=== PATIENT | female | born 1945 | race Caucasian/White ===

== ENCOUNTER 2017-01-16 05:14 | Inpatient (IN) ==
--- NOTE | 2017-01-16 06:21 | Emergency Department Note ---
Kade Pratt Hilary, am scribing for, and in the presence of, Jeffrey Joyce MD 06: 12. Maria Del Carmen Pratt James D, MD, personally performed the services described in this documentation, ascribed by Jena Braun in my presence, and it is both accurate and complete 621 . Arrival - Arrival Chief Complaint: Extremity Problem Stated Complaint: left leg pain, weakness ED Nursing Triage Note: Patient to room via ems with c/o left leg pain that started one week ago. Patient states this afternoon it got worse. She couldn't even get up and go to the bedside chair. Mode of Arrival: Stretcher Limitations: No Limitations Source: Patient, RN Notes Reviewed - History of Present Illness HPI Narrative: Pt is a 71 y/o white female brought into ED via EMS with c/o left leg pain which onset a week ago. Pt states that the pain is in her upper leg and she denies injury to it. She says that she normally walks with a walker or her power chair. No other complaints or problems stated in the ED. Onset (ago): week(s) Consistency: constant Severity: mild Severity scale (1-10): 1 Allergies/Adverse Reactions: Allergies Allergy/AdvReac Type Severity Reaction Status Date / Time Sulfa (Sulfonamide Allergy Unknown/Unable Verified 01/16/17 05:27 Antibiotics) to obtain Home Medications: Home Medications Medication Instructions Recorded Confirmed Type Cholecalciferol (Vitamin D3) 2,000 unit PO DAILY 10/17/15 05/24/16 History [Vitamin D3] Magnesium Oxide [Magnesium] 400 mg PO DAILY 10/17/15 05/24/16 History Bisoprolol Fumarate 5 mg PO DAILY 04/07/16 05/24/16 History Cetirizine Tab [ZyrTEC Tab] 10 mg PO DAILY 05/18/16 05/24/16 History Cyanocobalamin (Vitamin B-12) 1,000 mcg PO DAILY 05/18/16 05/24/16 History [Vitamin B-12] Fluticasone 50 Mcg Nasal [place] 1 spray BOTH NARES DAILY 05/18/16 05/24/16 History [Flonase Nasal [place]] Meclizine [Antivert] 25 mg PO DAILY PRN 05/18/16 05/24/16 History Phenytoin ER Cap [Dilantin Cap] 200 mg PO TID 05/18/16 05/24/16 History Tramadol HCl [Tramadol Tab] 50 mg PO QID PRN 05/18/16 05/24/16 History Acetaminophen Tab [Tylenol Tab] 650 mg PO Q6H PRN #0 tablet 05/24/16 05/24/16 Rx Benzonatate [Tessalon] 100 mg PO TID PRN #0 capsule 05/24/16 05/24/16 Rx Docusate Sodium Cap [Colace Cap] 100 mg PO BID capsule 05/24/16 05/24/16 Rx Ferrous Sulfate Tab [Feosol 325 mg PO DAILY tablet 05/24/16 05/24/16 Rx Original Tab] Fluticasone 50 Mcg Nasal [place] 2 spray BOTH NARES BEDTIME nasal 05/24/16 Rx [Flonase Nasal [place]] spray Ibuprofen Tab [Motrin Tab] 600 mg PO Q6H PRN #0 tablet 05/24/16 05/24/16 Rx Levothyroxine Tab [Synthroid Tab] 50 mcg PO DAILY@0700 #30 tablet 05/24/1605/24 Rx Montelukast Tab [Singulair Tab] 10 mg PO DAILY tablet 05/24/16 05/24/16 Rx Phenol 1.4% Throat Bristol 5 spray PO Q2H PRN #0 bottle 05/24/16 05/24/16 Rx [Chloraseptic Bristol] Potassium Chloride Cap/Tab [K Dur] 10 meq PO DAILY #30 tablet 05/24/16 05/24/16 Rx Skin Healing Oint (Aquaphor) 1 applic TOP PRN PRN #0 ointment 05/24/16 05/24/16 Rx [Aquaphor] guaiFENesin/CODEINE [Robitussin AC] 5 ml PO BID PRN #0 liquid 05/24/16 05/24/16 Rx Review of System - Review of System 12 point system: reviewed and no additional remarkable complaints except as stated - Review of System Constitutional: Absent: fever Musculoskeletal: Present: leg pain (left leg) Medical,Surgical,& Family Hx - Medical History Cardio: History of: Hypertension Psychological: History of: Depression Neurology: History of: Peripheral Neuropathy, Seizures HEENT: History of: Ear Problem (ear infections) Endocrine: History of: Diabetes Mellitus (IDDM), Diabetes Mellitus (NIDDM) Respiratory: History of: Obstructive Sleep Apnea, Pneumonia Musculoskeletal: History of: Back/Neck Problems (osteoarthritis), Musculoskeletal Problems Hematology: History of: Anemia (chronic disease) Other: History of: Cancer (skin cancer left hand) - Surgical History Cardiac Surgeries: Patient Denies: Femoral-Popliteal Bypass Graft, Cardiac Catheterization, Carotid Endarterectomy, Internal Defibrillator, Vascular Access Devices Thoracic Surgeries: Patient denies;: Kidney (Renal Surgery), Lithotripsy, Nephrectomy, Organ Transplant, Lobectomy Neurologic Surgeries: Patient denies: Neurologic Surgery HEENT Surgeries: Surgical HX of: Thyroid Surgery, Tonsilectomy & Adenoidectomy Patient denies: Carotid Endarterectomy Abdominal Surgeries: Surgical HX of: Colonoscopy, EGD Patient denies: Splenectomy Reproductive Surgeries: Surgical HX of;: Hysterectomy Patient denies;: Cystoscopy, Genitourinary Surgery Orthopedic Surgeries: Comment Only: Total Knee Replacement (left knee scope) - Family History Family History: Reports;: Family Cancer (sisters parents), Family Diabetes ( diabetes) - Social History Smoking Status: Never smoker Frequency of Alcohol Use: None Type of Drug Use: None Marital Status: Single Lives With:: Alone Functional capacity: uses cane/walker (power chair) Exam Physical Examination: GENERAL: This is a Morbidly Obese white female, well-developed in no apparent distress. VITAL SIGNS: Temperature: 98.3 Pulse: 75 Respiratory: 22 Blood Pressure: 189/ 71 O2Sat: 95 HEENT: Head is normocephalic and atraumatic. Pupils are equally round and reactive to light. Extraocular movement are intact. Oropharynx is benign with moist mucous membranes. NECK: Neck is soft and supple without tenderness. There are no masses. There is no lymphadenopathy. LUNGS: Lungs are clear to auscultation bilaterally. Chest rises symmetrically. There is no chest wall tenderness. CV: Heart is regular rate and rhythm without murmurs, rubs, or gallops. ABDOMEN: Abdomen is soft, non-tender to palpation. There are no abnormal masses palpated. There is no organomegaly. Bowel sounds are present and active. SKIN: Skin is warm and dry. No rash. Redness from the knees down, errythema, induration, cellulitis EXTREMITIES: I was incapable of moving patient's left lower extremity through passive range of motion due to the size of her legs. There is pedal edema. NEUROLOGIC: Awake, alert, and oriented x4. Cranial nerves II through XII are grossly intact. There are no motorsensory deficits. PSYCHIATRIC: Normal affect. Normal mood. Vital Signs: Vital Signs Temperature 98.3 F 01/16/17 05:20 Pulse Rate 75 01/16/17 05:20 Respiratory Rate 22 01/16/17 05:20 Blood Pressure 189/71 01/16/17 05:20 O2 Sat by Pulse Oximetry 95 01/16/17 05:20 Course - Consultations Consultation #1: Discussed with Dr. Santiago. Patient will be admitted to Dr. Gabriela Renner service. Initial orders written for her. Time: 08:04 Results - Labs CBC & BMP: 01/16/17 06:47 01/16/17 06:47 Lab Results: I have reviewed the patients labs Labs: Laboratory Tests 01/16/17 06:47 WBC 5.7 RBC 4.09 Hgb 13.2 Hct 38.5 Plt Count 157 Baso % (Auto) 0.9 H Lymph # (Auto) 1.2 L Laboratory Tests 01/16/17 06:47 Sodium 143 Potassium 4.3 Chloride 106 Carbon Dioxide 28 BUN 18 BUN/Creatinine Ratio 25.00 H Glucose 110 H Alkaline Phosphatase 136 H Total Protein 6.8 - Diagnostic Findings Procedure: X-ray: image reviewed by me (Left hip and pelvis: No evidence of fracture.) Disposition Clinical Impression: Degenerative joint disease of left hip, Diabetes mellitus, Chronic cellulitis of lower extremities Case discussed with: patient, patient's family Disposition: Still a Patient
--- NOTE | 2017-01-16 06:53 | XRay Report ---
Exam: XR hip 2v w pelvis LT Date: 01/16/2017 6:08 AM Indication: Left hip pain Comparison: None Technical AP pelvis with AP frog-leg views and frog-leg view of the left hip and AP view left hip 4 total images Findings: The pubic rami are intact. The femoral head and neck regions are demonstrated without fracture. Moderate fecal debris in the colon. The iliac wings SI joints are intact. Degenerative change present in the lumbosacral spine. Disc space narrowing at L4-5 and L5-S1. Impression: 1. No fracture dislocation with minimal degenerative arthritic changes of the hips 2. Mild to moderate fecal debris 3. Degenerative changes lumbosacral spine PROCEDURE INTERPRETED AT [facility] DEPARTMENT OF RADIOLOGY Final Report Signed by: Dr. Mathieu Foreman
[2017-01-16 07:23] LABS: Basophils # 0.1 10*3/uL (0.0-0.2); Basophils % 0.9 % (0.0-0.8); Eosinophils # 0.3 10*3/uL (0.0-0.87); Eosinophils % 4.9 % (0.00-10.9); Hematocrit 38.5 VOL% (35.7-47.0); Hemoglobin 13.2 GM/DL (12.0-16.0); Immature Granulocytes % 0.5 %; Immature Granulocytes Absolute 0.03 #; Lymphocytes # 1.2 10*3/uL (1.4-4.0); Lymphocytes % 21.4 % (21.3-54.2); Mean Corpuscular HGB Conc 34.3 GM/DL (32-36); Mean Corpuscular Hemoglobin 32 PG (27-34); Mean Corpuscular Volume 94.1 FL (87-102); Monocytes # 0.5 10*3/uL (0.11-0.8); Monocytes % 8.4 % (1.7-12.7); Neutrophils # 3.7 10*3/uL (1.4-7.4); Neutrophils % 63.9 % (38.7-73.9); Platelet Count 157 T/CUMM (130-400); Red Blood Count 4.09 MC/CUMM (3.8-5.5); White Blood Count 5.7 T/CUMM (4-12)
[2017-01-16 07:41] LABS: Albumin 3.8 G/DL (3.4-5.0); Bilirubin,Total 0.4 MG/DL (0.2-1.0); Calcium 8.6 MG/DL (8.5-10.1); Potassium 4.3 MMOL/L (3.5-5.1); Total Protein 6.8 G/DL (6.4-8.3)
[2017-01-16] MEDS ORDERED: KETOROLAC 30 MG/1 ML VIAL ONE (08:07)
[2017-01-16] MEDS ORDERED: KETOROLAC 30 MG/1 ML VIAL IV STA (08:33)
[2017-01-16] MEDS ORDERED: KETOROLAC 30 MG/1 ML VIAL IV PRN (08:45)
[2017-01-16] MEDS ORDERED: ONDANSETRON 4 MG/2 ML VIAL IV PRN (08:45)
[2017-01-16] MEDS ORDERED: ACETAMINOPHEN 325 MG TABLET PO PRN (08:45)
[2017-01-16] MEDS: SODIUM CHLORIDE 0.9% 1,000 ML IV SCH ×2 (11:34→22:36)
[2017-01-16] MEDS: CLINDAMYCIN INJ 600 MG in PREMIX 1 EACH IV SCH ×2 (11:34→18:57)
[2017-01-16] MEDS: PANTOPRAZOLE 40 MG TABLET PO SCH (11:35)
[2017-01-16] MEDS: DOCUSATE SODIUM 100 MG CAPSULE PO SCH ×2 (11:35→22:37)
[2017-01-16] MEDS: ENOXAPARIN 40 MG/0.4 ML SYRINGE SUBCUT SCH (11:35)
[2017-01-16] MEDS ORDERED: SKIN HEALING OINT (AQUAPHOR) 50 GM TUBE TOP PRN (15:09)
--- NOTE | 2017-01-16 18:50 | Family Practice History&Phys ---
Assessment and Plan (1) Morbid obesity Status: Chronic Current Visit: Yes (2) Lower extremity cellulitis Problem details: bilateral Status: Resolved Assessment and plan: 04/18/2017: Cultures obtained and patient was started on IV Cleocin in the emergency room. Current Visit: No (3) Degenerative joint disease of left hip Status: Acute Assessment and plan: 01/16/2017: Physical therapy will be consulted. Patient has very limited number of therapeutic options at this time. Current Visit: Yes History of Present Illness Chief complaint: Left groin pain History of present illness: Ms. Alva is a 71 year old female Patient is a 71-year-old white female who lives at [facility] who presents emergency room complaining of increasing pain in the left groin and hip area. The pain is intensified to the point that she was unable to transfer herself from her wheelchair to the commode. She is morbidly obese and they were unable to provide her the necessary assistance to accomplish that goal. Patient denies any falls or injuries and states she has not done anything to hurt her left hip that she knows of. The only time she stands is to transfer to the commode. She is not ambulatory. Patient states she has not had any fever or chills and she denies any nausea, vomiting or diarrhea. Home Medications Medication Instructions Recorded Confirmed Type Magnesium Oxide [Magnesium] 400 mg PO DAILY 10/17/15 01/16/17 History Cetirizine Tab [ZyrTEC Tab] 10 mg PO DAILY 05/18/16 01/16/17 History Meclizine [Antivert] 25 mg PO DAILY 05/18/16 01/16/17 History Tramadol HCl [Tramadol Tab] 50 mg PO QID PRN 05/18/16 01/16/17 History Doxycycline Monohydrate 100 mg PO BID 01/16/17 01/16/17 History Furosemide Tab [Lasix Tab] 160 mg PO DAILY 01/16/17 01/16/17 History Levothyroxine Tab [Synthroid Tab] 50 mcg PO DAILY 01/16/17 01/16/17 History Phenytoin Sodium Extended 200 mg PO TID 01/16/17 01/16/17 History Sitagliptin Phosphate [Januvia] 50 mg PO DAILY 01/16/17 01/16/17 History Tamsulosin [Flomax] 0.4 mg PO DAILY 01/16/17 01/16/17 History Allergies Allergy/AdvReac Type Severity Reaction Status Date / Time Sulfa (Sulfonamide Allergy Unknown/Unable Verified 01/16/17 11:08 Antibiotics) to obtain - Constitutional Constitutional: Absent: chills, fever(s), malaise, weakness - EENT Eyes: Absent: blurry vision, loss of vision Ears: Absent: decreased hearing, ear pain Nose, mouth and throat: Absent: hoarseness, sinus pressure, sore throat - Cardiovascular Cardiovascular: Absent: chest pain at rest, dyspnea, orthopnea, palpitations, PND - Respiratory Respiratory: Absent: cough, dyspnea, wheezing - Gastrointestinal Gastrointestinal: Absent: abdominal pain, diarrhea, dyspepsia, dysphagia, melena , nausea, vomiting - Genitourinary Genitourinary: Absent: difficulty urinating, dysuria, urinary frequency - Musculoskeletal Musculoskeletal: Present: as per HPI, arthralgias (Left hip). Absent: back pain , muscle cramps - Neurological Neurological: Absent: abnormal gait, confusion, focal weakness, frequent falls, numbness, paresthesias - Psychiatric Psychiatric: Absent: anxiety, depression - Endocrine Endocrine: Absent: fatigue, polydipsia, polyphagia - Hematologic/Lymphatic Hematologic/Lymphatic: Absent: easy bleeding, easy bruising Medical,Surgical,& Family Hx - Medical History Cardio: History of: Hypertension Psychological: History of: Depression Neurology: History of: Peripheral Neuropathy, Seizures HEENT: History of: Ear Problem (ear infections) Endocrine: History of: Diabetes Mellitus (IDDM), Diabetes Mellitus (NIDDM) Respiratory: History of: Obstructive Sleep Apnea, Pneumonia Musculoskeletal: History of: Back/Neck Problems (osteoarthritis), Musculoskeletal Problems Hematology: History of: Anemia (chronic disease) Other: History of: Cancer (skin cancer left hand), Miscellaneous Medical Problems (Morbid obesity) - Surgical History Cardiac Surgeries: Patient Denies: Femoral-Popliteal Bypass Graft, Cardiac Catheterization, Carotid Endarterectomy, Internal Defibrillator, Vascular Access Devices Thoracic Surgeries: Patient denies;: Kidney (Renal Surgery), Lithotripsy, Nephrectomy, Organ Transplant, Lobectomy Neurologic Surgeries: Patient denies: Neurologic Surgery HEENT Surgeries: Surgical HX of: Thyroid Surgery, Tonsilectomy & Adenoidectomy Patient denies: Carotid Endarterectomy Abdominal Surgeries: Surgical HX of: Colonoscopy, EGD Patient denies: Splenectomy Reproductive Surgeries: Surgical HX of;: Hysterectomy Patient denies;: Cystoscopy, Genitourinary Surgery Orthopedic Surgeries: Comment Only: Total Knee Replacement (left knee scope) - Family History Family History: Reports;: Family Cancer (sisters parents), Family Diabetes ( diabetes) - Social History Smoking Status: Never smoker Frequency of Alcohol Use: None Type of Drug Use: None Exam - Constitutional Vitals: Period Temp Pulse Resp BP Sys/Kemp Pulse Ox Last 24 Hr 97.2 F-98.3 F 70-75 16-22 127-189/62-73 93-97 Exam: General: Objective patient is a well-developed morbidly obese white female in no acute distress. Patient is able to give a good history and follows commands accurately. She is virtually akinetic due to her obesity. Her sister has been 1 of my patients for over 10 years. HEENT: Pupils equal and reactive to light. Patent nares and airway Neck: No meningismus, adenopathy, thyromegaly. There are no auscultated carotid bruits. Cardiovascular: Regular rhythm. No murmurs or gallops Chest: Clear to auscultation without rales rhonchi wheezes. Abdomen: Soft nontender to palpation No masses, rebound, guarding or tenderness. Neuro: Cranial nerves intact and patient has diffuse muscle weakness. Dermatologic: Patient's noted to have changes of cellulitis to both calves. Some of this is probably chronic venous stasis dermatitis. Musculoskeletal: There is pain with left hip rotation. Extremities: She has tenderness to both calves. Results - Labs CBC & BMP: 01/16/17 06:47 01/16/17 06:47 Lab Results: I have reviewed the past 24 hour labs
[2017-01-16] MEDS: DOXYCYCLINE HYCLATE 100 MG CAPSULE PO SCH (22:37)
[2017-01-16] MEDS: PHENYTOIN ER 100 MG CAPSULE PO SCH (22:37)
[2017-01-17] MEDS: CLINDAMYCIN INJ 600 MG in PREMIX 1 EACH IV SCH ×3 (02:38→18:27)
[2017-01-17] MEDS: SODIUM CHLORIDE 0.9% 1,000 ML IV SCH ×4 (02:39→23:57)
[2017-01-17] MEDS: LEVOTHYROXINE 50 MCG TABLET PO SCH (07:08)
[2017-01-17] MEDS: sitaGLIPtin 25 MG TABLET PO SCH (10:06)
[2017-01-17] MEDS: DOCUSATE SODIUM 100 MG CAPSULE PO SCH ×2 (10:07→22:22)
[2017-01-17] MEDS: MAGNESIUM OXIDE 400 MG TABLET PO SCH (10:07)
[2017-01-17] MEDS: MECLIZINE 25 MG TABLET PO SCH (10:07)
[2017-01-17] MEDS: FUROSEMIDE 80 MG TABLET PO SCH (10:07)
[2017-01-17] MEDS: TAMSULOSIN 0.4 MG CAPSULE PO SCH (10:07)
[2017-01-17] MEDS: PHENYTOIN ER 100 MG CAPSULE PO SCH ×3 (10:07→22:18)
[2017-01-17] MEDS: ENOXAPARIN 40 MG/0.4 ML SYRINGE SUBCUT SCH (10:08)
[2017-01-17] MEDS: CETIRIZINE 10 MG TABLET PO SCH (10:08)
[2017-01-17] MEDS: PANTOPRAZOLE 40 MG TABLET PO SCH (10:08)
[2017-01-17] MEDS: DOXYCYCLINE HYCLATE 100 MG CAPSULE PO SCH (10:23)
[2017-01-17] MEDS ORDERED: TUBERCULIN SKIN TEST 0.1 ML SYRINGE INTRADERM ONE (12:30)
--- NOTE | 2017-01-17 12:54 | Case Mgmt Physician Query Form ---
TB Signs and Symptoms Screening ([place]) INSTRUCTIONS: To be completed annually on residents/staff with a significant Tuberculin Skin Test (TST) upon admission/hire or a prior significant TST. To be completed on all staff at hire. Please respond to each listed symptom with an (X) in either the "YES" or "NO" box. Do you currently have any of the following symptoms: YES NO ( ) (x ) A cough If yes, is it: ( ) Productive ( ) Non- productive ( ) ( x) Hemoptysis (spitting up blood) ( ) (x ) Chest pains ( ) ( x) Weight Loss ( ) (x ) Fever ( ) (x ) Night Sweats ( x) ( ) Weakness ( ) (x ) Loss of Appetite ( ) ( x) Difficulty Breathing If you answered YES" to any of the above questions, how long have symptoms been present? Comments: If you have any questions, please contact me . Thank you, Fatimah DANIELLE Email: [email or web address] [facility]
[2017-01-17] MEDS: MAGNESIUM HYDROXIDE SUSP 30 ML UDCUP PO SCH ×3 (15:20→22:22)
--- NOTE | 2017-01-17 16:10 | Internal Med Progress Note ---
Assessment and Plan (1) Degenerative joint disease of left hip Status: Chronic Current Visit: Yes Qualifiers: Osteoarthritis type: primary Qualified Code(s): M16.12 - Unilateral primary osteoarthritis, left hip (2) Diabetes mellitus Status: Chronic Current Visit: Yes Qualifiers: Diabetes mellitus type: type 2 Diabetes mellitus complication status: with skin complications Diabetes mellitus complication detail: with dermatitis Diabetes mellitus emt intermediate insulin use: with assisted use Qualified Code(s) : E11.620 - Type 2 diabetes mellitus with diabetic dermatitis; Z79.4 - ferry terminal agent (current) use of insulin (3) Morbid obesity Status: Chronic Current Visit: Yes Qualifiers: Obesity type: due to excess calories Qualified Code(s): E66.01 - Morbid ( severe) obesity due to excess calories (4) Cellulitis Status: Chronic Current Visit: Yes Qualifiers: Site of cellulitis: extremity Site of cellulitis of extremity: lower extremity Laterality: left Qualified Code(s): L03.116 - Cellulitis of left lower limb (5) Debility Status: Chronic Current Visit: Yes (6) Obstructive sleep apnea Status: Chronic Current Visit: No (7) Venous stasis dermatitis of both lower extremities Status: Chronic Current Visit: Yes (8) Chronic acquired lymphedema Status: Chronic Current Visit: Yes (9) HTN (hypertension) Status: Chronic Current Visit: Yes Qualifiers: Hypertension type: essential hypertension Qualified Code(s): I10 - Essential (primary) hypertension Internal Medicine - PN: Subj Interval history: This is a 71 year old female with history of HTN, DM, chronic peripheral lower extremity lymphedema, chronic peripheral lower extremity cellulitis, chronic lower extremity venous stasis, morbid obesity, osteoarthritis, immobility, who is here with chronic back pain/hip pain. She has been living in [facility], but can no longer care for herself. She is now agreeable with going to halfway. Dr. Dash consulted for wound care. She is on Clindamycin IV. Exam (Progress Note) - Constitutional Vitals: Period Temp Pulse Resp BP Sys/Kemp Pulse Ox Last 24 Hr 97.4 F-98.9 F 67-76 18-20 132-181/54-78 92-96 General appearance: no acute distress - Head Head exam: Present: normocephalic - Eye Eye exam: Present: EOMI - Respiratory Respiratory exam: Present: clear to auscultation bilaterally - Cardiovascular Cardiovascular exam: Present: regular rate and rhythm - GI/Abdominal GI/Abdominal exam: Present: normal bowel sounds, soft. Absent: tenderness - Extremities Exam Extremities exam: Present: other (leg tenderness). Absent: edema - Neurological Exam Neurological exam: Present: alert, oriented X3 - Psychiatric Psychiatric exam: Present: normal mood - Skin Skin exam: Present: warm, dry Results - Labs CBC & BMP: 01/18/17 05:24 01/18/17 05:24
[2017-01-17] MEDS ORDERED: CHLORHEXIDINE 4% SOLN 118 ML BOTTLE TOP ONE (16:27)
--- NOTE | 2017-01-17 16:34 | General Surgery Consult Note ---
Assessment and Plan - Time spent with patient Time spent with patient: Less than 30 minutes (1) Venous stasis dermatitis of both lower extremities Status: Acute Assessment and plan: Impression: Bilateral chronic venous stasis dermatitis with weeping but no ulcers Plan: Compressive therapy. Current Visit: No History of Present Illness Chief complaint: Bilateral leg swelling with blisters History of present illness: Ms. Alva is a 71 year old female obese with limited mobility and chronic venous stasis disease of the legs. She has them wrapped and complains of soreness and some drainage. No clear ulcer is seen but in is moist on the posterior aspect. Home Medications Medication Instructions Recorded Confirmed Type Magnesium Oxide [Magnesium] 400 mg PO DAILY 10/17/15 01/16/17 History Cetirizine Tab [ZyrTEC Tab] 10 mg PO DAILY 05/18/16 01/16/17 History Meclizine [Antivert] 25 mg PO DAILY 05/18/16 01/16/17 History Tramadol HCl [Tramadol Tab] 50 mg PO QID PRN 05/18/16 01/16/17 History Doxycycline Monohydrate 100 mg PO BID 01/16/17 01/16/17 History Furosemide Tab [Lasix Tab] 160 mg PO DAILY 01/16/17 01/16/17 History Levothyroxine Tab [Synthroid Tab] 50 mcg PO DAILY 01/16/17 01/16/17 History Phenytoin Sodium Extended 200 mg PO TID 01/16/17 01/16/17 History Sitagliptin Phosphate [Januvia] 50 mg PO DAILY 01/16/17 01/16/17 History Tamsulosin [Flomax] 0.4 mg PO DAILY 01/16/17 01/16/17 History Allergies Allergy/AdvReac Type Severity Reaction Status Date / Time Sulfa (Sulfonamide Allergy Unknown/Unable Verified 01/16/17 11:08 Antibiotics) to obtain Medical,Surgical,& Family Hx - Medical History Cardio: History of: Hypertension Psychological: History of: Depression Neurology: History of: Peripheral Neuropathy, Seizures HEENT: History of: Ear Problem (ear infections) Endocrine: History of: Diabetes Mellitus (IDDM), Diabetes Mellitus (NIDDM) Respiratory: History of: Obstructive Sleep Apnea, Pneumonia Musculoskeletal: History of: Back/Neck Problems (osteoarthritis), Musculoskeletal Problems Hematology: History of: Anemia (chronic disease) Other: History of: Cancer (skin cancer left hand), Miscellaneous Medical Problems (Morbid obesity) - Surgical History Cardiac Surgeries: Patient Denies: Femoral-Popliteal Bypass Graft, Cardiac Catheterization, Carotid Endarterectomy, Internal Defibrillator, Vascular Access Devices Thoracic Surgeries: Patient denies;: Kidney (Renal Surgery), Lithotripsy, Nephrectomy, Organ Transplant, Lobectomy Neurologic Surgeries: Patient denies: Neurologic Surgery HEENT Surgeries: Surgical HX of: Thyroid Surgery, Tonsilectomy & Adenoidectomy Patient denies: Carotid Endarterectomy Abdominal Surgeries: Surgical HX of: Colonoscopy, EGD Patient denies: Splenectomy Reproductive Surgeries: Surgical HX of;: Hysterectomy Patient denies;: Cystoscopy, Genitourinary Surgery Orthopedic Surgeries: Comment Only: Total Knee Replacement (left knee scope) - Family History Family History: Reports;: Family Cancer (sisters parents), Family Diabetes ( diabetes) - Social History Smoking Status: Never smoker Frequency of Alcohol Use: None Type of Drug Use: None 12 point system: reviewed and no additional remarkable complaints except as stated Exam - Constitutional Vitals: Period Temp Pulse Resp BP Sys/Kemp Pulse Ox Last 24 Hr 97.4 F-98.9 F 67-76 18-20 132-181/54-78 92-96 General appearance: mild distress - Head Head exam: Present: normal inspection - ENT ENT exam: Present: normal exam - Neck Neck exam: Present: normal inspection - Respiratory Respiratory exam: Present: rales, rhonchi - Cardiovascular Cardiovascular exam: Present: RRR - GI/Abdominal GI/Abdominal exam: Present: hypoactive bowel sounds, soft - Extremities Exam Extremities exam: Present: other (Bilateral edema moderated with moisture especially posteriorily and chronic venousstasis changes.) - Back Exam Back exam: Present: normal inspection - Neurological Exam Neurological exam: Present: alert, oriented X3, CN II-XII intact - Skin Skin exam: Present: normal color, warm, dry Results - Labs CBC & BMP: 01/16/17 06:47 01/16/17 06:47 Lab Results: I have reviewed the past 24 hour labs
[2017-01-17] MEDS: ALBUTEROL/IPRATROPIUM 3 ML NEB RESP TX SCH (19:59)
[2017-01-18] MEDS: ALBUTEROL/IPRATROPIUM 3 ML NEB RESP TX SCH ×4 (01:04→19:14)
[2017-01-18] MEDS: SODIUM CHLORIDE 0.9% 1,000 ML IV SCH ×3 (02:07→19:29)
[2017-01-18] MEDS: traMADol 50 MG TABLET PO PRN ×3 (03:22→14:30)
[2017-01-18] MEDS: CLINDAMYCIN INJ 600 MG in PREMIX 1 EACH IV SCH ×3 (03:23→18:20)
[2017-01-18] MEDS: LEVOTHYROXINE 50 MCG TABLET PO SCH (06:12)
[2017-01-18 06:35] LABS: Basophils % 0.8 % (0.0-0.8); Eosinophils # 0.2 10*3/uL (0.0-0.87); Eosinophils % 3.5 % (0.00-10.9); Hematocrit 35.8 VOL% (35.7-47.0); Hemoglobin 12.2 GM/DL (12.0-16.0); Immature Granulocytes % 0.4 %; Immature Granulocytes Absolute 0.02 #; Lymphocytes # 0.9 10*3/uL (1.4-4.0); Lymphocytes % 18.5 % (21.3-54.2); Mean Corpuscular HGB Conc 34.1 GM/DL (32-36); Mean Corpuscular Hemoglobin 32 PG (27-34); Monocytes # 0.6 10*3/uL (0.11-0.8); Monocytes % 11.4 % (1.7-12.7); Neutrophils # 3.2 10*3/uL (1.4-7.4); Neutrophils % 65.4 % (38.7-73.9); Platelet Count 140 T/CUMM (130-400); Red Blood Count 3.81 MC/CUMM (3.8-5.5); Red Cell Distribution Width 13.9 % (9.3-17.3); White Blood Count 4.8 T/CUMM (4-12)
[2017-01-18 07:11] LABS: Calcium 7.8 MG/DL (8.5-10.1); Magnesium 2.3 MG/DL (1.8-2.4); Osmolality,Calculated 287.8 MOS/KG (273-304); Potassium 3.4 MMOL/L (3.5-5.1); Thyroid Stimulating Hormone 23.6 uIU/ml (0.358-3.74)
[2017-01-18] MEDS: MECLIZINE 25 MG TABLET PO SCH (10:17)
[2017-01-18] MEDS: TAMSULOSIN 0.4 MG CAPSULE PO SCH (10:17)
[2017-01-18] MEDS: DOCUSATE SODIUM 100 MG CAPSULE PO SCH ×2 (10:17→21:26)
[2017-01-18] MEDS: FUROSEMIDE 80 MG TABLET PO SCH (10:17)
[2017-01-18] MEDS: PHENYTOIN ER 100 MG CAPSULE PO SCH ×3 (10:18→21:26)
[2017-01-18] MEDS: MAGNESIUM OXIDE 400 MG TABLET PO SCH (10:18)
[2017-01-18] MEDS: sitaGLIPtin 25 MG TABLET PO SCH (10:18)
[2017-01-18] MEDS: ENOXAPARIN 40 MG/0.4 ML SYRINGE SUBCUT SCH (10:18)
[2017-01-18] MEDS: PANTOPRAZOLE 40 MG TABLET PO SCH (10:18)
[2017-01-18] MEDS: MAGNESIUM HYDROXIDE SUSP 30 ML UDCUP PO SCH ×4 (10:19→21:26)
[2017-01-18] MEDS: CETIRIZINE 10 MG TABLET PO SCH (10:19)
--- NOTE | 2017-01-18 18:35 | Internal Med Progress Note ---
Assessment and Plan (1) Cellulitis Status: Chronic Current Visit: Yes Qualifiers: Site of cellulitis: extremity Site of cellulitis of extremity: lower extremity Laterality: left Qualified Code(s): L03.116 - Cellulitis of left lower limb (2) Chronic acquired lymphedema Status: Chronic Current Visit: Yes (3) Debility Status: Chronic Current Visit: Yes (4) Degenerative joint disease of left hip Status: Chronic Current Visit: Yes Qualifiers: Osteoarthritis type: primary Qualified Code(s): M16.12 - Unilateral primary osteoarthritis, left hip (5) Diabetes mellitus Status: Chronic Current Visit: Yes Qualifiers: Diabetes mellitus type: type 2 Diabetes mellitus complication status: with skin complications Diabetes mellitus complication detail: with dermatitis Diabetes mellitus medical terminologist insulin use: with medical terminologist use Qualified Code(s) : E11.620 - Type 2 diabetes mellitus with diabetic dermatitis; Z79.4 - terminal manager (current) use of insulin (6) HTN (hypertension) Status: Chronic Current Visit: Yes Qualifiers: Hypertension type: essential hypertension Qualified Code(s): I10 - Essential (primary) hypertension (7) Morbid obesity Status: Chronic Current Visit: Yes Qualifiers: Obesity type: due to excess calories Qualified Code(s): E66.01 - Morbid ( severe) obesity due to excess calories Internal Medicine - PN: Subj Interval history: This is a 71 year old female with history of HTN, DM, chronic peripheral lower extremity lymphedema, chronic peripheral lower extremity cellulitis, chronic lower extremity venous stasis, morbid obesity, osteoarthritis, immobility, who is here with chronic back pain/hip pain. She has been living in [facility], but can no longer care for herself. She is now agreeable with going to [facility]. Dr. Dash consulted for wound care. She is on Clindamycin IV. She is complaining of leg pain. Will try lidoderm patches. Exam (Progress Note) - Constitutional Vitals: Period Temp Pulse Resp BP Sys/Kemp Pulse Ox Last 24 Hr 97.5 F-99.6 F 64-79 18-20 117-152/57-71 91-99 Exam: General appearance: no acute distress - Respiratory Respiratory exam: Present: clear to auscultation bilaterally - Cardiovascular Cardiovascular exam: Present: regular rate and rhythm - GI/Abdominal GI/Abdominal exam: Present: normal bowel sounds, soft. Absent: tenderness - Extremities Exam Extremities exam: Present: other (leg tenderness). Absent: edema - Neurological Exam Neurological exam: Present: alert, oriented X3 - Psychiatric Psychiatric exam: Present: normal mood - Skin Skin exam: Present: warm, dry Results - Labs CBC & BMP: 01/18/17 05:24 01/18/17 05:24
[2017-01-18] MEDS: POTASSIUM CHLORIDE 20 MEQ TABLET PO SCH (21:26)
[2017-01-19] MEDS: ALBUTEROL/IPRATROPIUM 3 ML NEB RESP TX SCH ×3 (00:28→13:42)
[2017-01-19] MEDS: traMADol 50 MG TABLET PO PRN ×3 (03:14→14:40)
[2017-01-19] MEDS: CLINDAMYCIN INJ 600 MG in PREMIX 1 EACH IV SCH ×2 (03:15→10:11)
[2017-01-19] MEDS: SODIUM CHLORIDE 0.9% 1,000 ML IV SCH ×2 (04:14→14:42)
[2017-01-19 06:34] LABS: Calcium 7.4 MG/DL (8.5-10.1); Osmolality,Calculated 284.1 MOS/KG (273-304)
[2017-01-19] MEDS ORDERED: LEVOTHYROXINE 75 MCG TABLET PO SCH (07:00)
--- NOTE | 2017-01-19 08:59 | General Surgery Progress Note ---
Assessment and Plan - Time spent with patient Time spent with patient: Less than 30 minutes (1) Venous stasis dermatitis of both lower extremities Status: Chronic Assessment and plan: 01/19/2017. Bilateral lower extremity chronic venous stasis disease with mild inflammation and superficial abrasions. There appears to be no advancing cellulitis or infection. She is responding well to elevation and compression, and her legs should improve now that she is not sitting with the legs dependent as much. She would probably do better with some type of compression garment, such as Farrow wraps, circumflex aid or ready wraps, if these were available. We will continue to follow with you as long as she is in. Current Visit: Yes Subjective Patient reports: Present: feels better, pain is less, tolerating a regular diet Exam - Constitutional Vitals: Period Temp Pulse Resp BP Sys/Kemp Pulse Ox Last 24 Hr 97.7 F-98.5 F 63-79 18-21 117-156/57-72 90-99 General appearance: no acute distress, morbidly obese, other (Denies shortness of breath) - Respiratory Respiratory exam: Absent: rales, wheezes - Extremities Exam Extremities exam: Present: other (Bilateral lower extremity edema is much improved. There is very minimal erythema residually on the right, with small superficial scratches and abrasions at the anterior medial skin surface. I see no drainage, no blistering, no weeping. On the left there is no ulceration or redness. This lower leg girth is larger than the right, however overall the skin integrity on the left appears to be in better shape. There are no pressure changes, no signs of vascular impairment, and no weeping or redness.) Results - Labs CBC & BMP: 01/18/17 05:24 01/19/17 05:41 Lab Results: I have reviewed the past 24 hour labs
[2017-01-19] MEDS ORDERED: LIDOCAINE 5% PATCH TRANSDERM SCH (09:00)
[2017-01-19] MEDS: sitaGLIPtin 25 MG TABLET PO SCH (09:49)
[2017-01-19] MEDS: MECLIZINE 25 MG TABLET PO SCH (09:49)
[2017-01-19] MEDS: MAGNESIUM OXIDE 400 MG TABLET PO SCH (09:49)
[2017-01-19] MEDS: PANTOPRAZOLE 40 MG TABLET PO SCH (09:49)
[2017-01-19] MEDS: POTASSIUM CHLORIDE 20 MEQ TABLET PO SCH (09:50)
[2017-01-19] MEDS: FUROSEMIDE 80 MG TABLET PO SCH (09:50)
[2017-01-19] MEDS: CETIRIZINE 10 MG TABLET PO SCH (09:50)
[2017-01-19] MEDS: PHENYTOIN ER 100 MG CAPSULE PO SCH ×2 (09:50→15:29)
[2017-01-19] MEDS: DOCUSATE SODIUM 100 MG CAPSULE PO SCH (09:50)
[2017-01-19] MEDS: TAMSULOSIN 0.4 MG CAPSULE PO SCH (09:50)
[2017-01-19] MEDS: MAGNESIUM HYDROXIDE SUSP 30 ML UDCUP PO SCH ×2 (09:51)
[2017-01-19] MEDS: ENOXAPARIN 40 MG/0.4 ML SYRINGE SUBCUT SCH (09:51)
[2017-01-19 12:09] VITALS: BP 134/57
--- NOTE | 2017-01-19 13:10 | Discharge Summary ---
Hospital Course - Hospital Course Hospital Course: This is a 71 year old female with history of HTN, DM, chronic peripheral lower extremity lymphedema, chronic peripheral lower extremity cellulitis, chronic lower extremity venous stasis, morbid obesity, osteoarthritis, immobility, who is here with chronic back pain/hip pain. She has been living in [facility], but can no longer care for herself. She is now agreeable with going to [facility]. Dr. Dash consulted for wound care. She is ready for discharge to [facility] for continued care. Diagnosis - Discharge Diagnosis (1) Cellulitis Status: Chronic (2) Chronic acquired lymphedema Status: Chronic (3) Debility Status: Chronic (4) Degenerative joint disease of left hip Status: Chronic (5) Diabetes mellitus Status: Chronic (6) HTN (hypertension) Status: Chronic (7) Morbid obesity Status: Chronic Discharge Plan - Discharge Data Disposition: Disch/Xfer to [facility] Condition at Discharge: Stable Discharge Diet: low fat, low cholesterol - Discharge Medications New RX: Acetaminophen Tab [Tylenol Tab] 650 mg PO Q6H PRN tablet PRN Reason: Fever > 100.4 Or Headache RX: Albuterol/Ipratropium Neb [Duoneb] 3 ml RESP TX RT Q6H RX: Aspirin EC Tab 81 mg PO DAILY #30 tablet RX: Docusate Sodium Cap [Colace Cap] 100 mg PO BID capsule Ketorolac Inj [Toradol Inj] 30 mg IM Q6H PRN #7 vial PRN Reason: Pain RX: Lidocaine 5% Patch [Lidoderm 5% Patch] 3 patch TRANSDERM DAILY patch RX: Magnesium Hydroxide Susp [Milk of Magnesia] 30 ml PO DAILY RX: Magnesium Hydroxide Susp [Milk of Magnesia] 30 ml PO TID RX: Skin Healing Oint (Aquaphor) [Aquaphor] 1 applic TOP PRN PRN applic PRN Reason: Dry Skin RX: Clindamycin Cap [Cleocin Cap] 300 mg PO Q8HR #30 capsule RX: Potassium Chloride Cap/Tab [K Dur] 20 meq PO BID tablet Continue RX: Magnesium Oxide [Magnesium] 400 mg PO DAILY RX: Tramadol HCl [Tramadol Tab] 50 mg PO QID PRN PRN Reason: Pain RX: Meclizine [Antivert] 25 mg PO DAILY RX: Cetirizine Tab [ZyrTEC Tab] 10 mg PO DAILY RX: Tamsulosin [Flomax] 0.4 mg PO DAILY RX: Furosemide Tab [Lasix Tab] 160 mg PO DAILY RX: Phenytoin Sodium Extended 200 mg PO TID RX: Sitagliptin Phosphate [Januvia] 50 mg PO DAILY RX: Levothyroxine Tab [Synthroid Tab] 50 mcg PO DAILY Discontinued RX: Doxycycline Monohydrate 100 mg PO BID - Follow Up or Referral Follow Up: Gabriela eRnner DO [Physician] - Chris Dash MD [Physician] - - Forms/Instructions Additional Discharge Instructions: Wound care per Dr. Dash. She will follow up in clinic per appointments set. (Dr. Pantera Renner and Dr. Dash) Exam - Constitutional Vitals: Period Temp Pulse Resp BP Sys/Kemp Pulse Ox Last 24 Hr 97.7 F-98.5 F 63-79 16-21 134-156/57-72 90-99 Exam: General appearance: no acute distress - Respiratory Respiratory exam: Present: clear to auscultation bilaterally - Cardiovascular Cardiovascular exam: Present: regular rate and rhythm - GI/Abdominal GI/Abdominal exam: Present: normal bowel sounds, soft. Absent: tenderness - Extremities Exam Extremities exam: Present: other (leg tenderness). Absent: edema - Neurological Exam Neurological exam: Present: alert, oriented X3 - Psychiatric Psychiatric exam: Present: normal mood - Skin Skin exam: Present: warm, dry Discharge Results Labs on day of discharge: Labs from last 24 hours 01/19/17 01/19/17 01/19/17 11:31 07:17 05:41 Sodium 142 Potassium 4.0 Chloride 106 Carbon Dioxide 27 Anion Gap 13.0 BUN 16 Creatinine 0.80 GFR Calculation 95 BUN/Creatinine Ratio 20.00 Glucose 123 H POC Glucose 171 H 137 H Calculated Osmolality 284.1 Calcium 7.4 L 01/18/17 01/18/17 20:17 12:19 Sodium Potassium Chloride Carbon Dioxide Anion Gap BUN Creatinine GFR Calculation BUN/Creatinine Ratio Glucose POC Glucose 149 H 129 H Calculated Osmolality Calcium DS: Provider Date of admission: 01/16/17 08:04 Primary care physician: . No PCP Attending physician on admission: Gabriela Renner DO Consults: 01/16/17 08:45 Consult to Case Mgmt/Social Srvs [CONS] Routine Reason for Case Mgmt/Social Srvs: Discharge Planning 01/16/17 18:45 Consult to Physical Therapy [CONS] Routine Reason for Physical Therapy: Evaluate and Treat 01/17/17 09:20 Consult to Physician [CONS] Routine Comment: leg wounds, pt known to you Consulting Provider: Chris Dash Person Notified: [email or web address] Date Notified: 01/17/17 Time Notified: 01/17/17 11:43 OT [Consult to Occupational Therapy] [CONS] Routine Reason for Occupational Therapy: Evaluate and Treat 01/17/17 16:31 Consult to Wound Care - [place] [CONS] Routine Reason for Wound Care: Wound Care Management Consult Comment: Chronic venous stasis disease of the legs Discharging clinician: Gabriela Renner DO Expected date of discharge: 01/19/17
== END 2017-01-19 15:56 | DRG 638 ==
LOC: EDBD → EDUNIT# → N.ED 05:14 → N.EDINP 08:04 → N.5E 08:44
PROVIDERS: ADMIT Internal Medicine; ATTEND Internal Medicine

== ENCOUNTER 2019-05-03 13:19 | Observation (INO) ==
[2019-05-03 15:11] LABS: Basophils # 0.1 10*3/uL (0.0-0.2); Basophils % 0.4 % (0.0-0.8); Eosinophils % 0.1 % (0.00-10.9); Hematocrit 36.5 VOL% (35.7-47.0); Hemoglobin 12.2 GM/DL (12.0-16.0); Immature Granulocytes % 0.6 %; Immature Granulocytes Absolute 0.09 #; Lymphocytes # 0.5 10*3/uL (1.4-4.0); Lymphocytes % 2.9 % (21.3-54.2); Mean Corpuscular HGB Conc 33.4 GM/DL (32-36); Mean Corpuscular Volume 99.7 FL (87-102); Mean Platelet Volume 9.4 FL (9.6-12.0); Monocytes % 5.8 % (1.7-12.7); Neutrophils % 90.2 % (38.7-73.9); Platelet Count 195 T/CUMM (130-400); Red Blood Count 3.66 MC/CUMM (3.8-5.5); Red Cell Distribution Width 13.6 % (9.3-17.3)
[2019-05-03 15:29] LABS: Apearance,Urine CLEAR (Clear); Bilirubin,Urine Negative (Negative); Blood, Urine Small mg/dL (Negative); Glucose,Urine (UA) Negative (Negative); Hyaline Casts,Urine 13 /LPF (0-3); Ketones,Urine Negative (Negative); Mucus,Urine Occasional /LPF (Occasional); Nitrite,Urine Negative (Negative); Protein,Urine Negative; RBC,Urine 1 /HPF (0-4); Squamous Epithelial Cell,Urine Occasional /HPF (0-10); Urine Color Yellow (Yellow); Urine Urobilinogen < 2.0 EU/DL (0.2-1.0); WBC,Urine <1 /HPF (0-6)
[2019-05-03 15:32] LABS: Albumin 3.5 G/DL (3.4-5.0); Bilirubin,Total 0.5 MG/DL (0.2-1.0); Calcium 8.7 MG/DL (8.5-10.1); Osmolality,Calculated 291.8 MOS/KG (273-304); Total Protein 7.6 G/DL (6.4-8.3)
[2019-05-03 15:35] LABS: Eosinophils 1 % (0-10); Lymphocytes 5 % (20-55); Platelet Estimate Normal; Segmented Neutrophils 90 % (50-85)
[2019-05-03 15:36] LABS: Total Cells Counted 100
[2019-05-03] MEDS ORDERED: ACETAMINOPHEN 325 MG TABLET PO PRN (18:46)
[2019-05-03] MEDS ORDERED: ONDANSETRON 4 MG/2 ML VIAL IV PRN (18:46)
[2019-05-03] MEDS ORDERED: RIVAROXABAN 15 MG TABLET PO STA (20:53)
[2019-05-03] MEDS: DEXTROSE 5% NACL 0.9% 1,000 ML IV SCH (21:33)
[2019-05-03] MEDS: DOCUSATE SODIUM 100 MG CAPSULE PO SCH (21:33)
[2019-05-04 04:24] LABS: Basophils # 0.1 10*3/uL (0.0-0.2); Basophils % 0.3 % (0.0-0.8); Hematocrit 32.4 VOL% (35.7-47.0); Hemoglobin 10.6 GM/DL (12.0-16.0); Immature Granulocytes Absolute 0.19 #; Lymphocytes % 5.1 % (21.3-54.2); Mean Corpuscular HGB Conc 32.7 GM/DL (32-36); Mean Corpuscular Volume 101.9 FL (87-102); Mean Platelet Volume 9.9 FL (9.6-12.0); Monocytes % 4.9 % (1.7-12.7); Neutrophils % 88.7 % (38.7-73.9); Platelet Count 168 T/CUMM (130-400); Red Blood Count 3.18 MC/CUMM (3.8-5.5); Red Cell Distribution Width 14.1 % (9.3-17.3); White Blood Count 18.6 T/CUMM (4-12)
[2019-05-04] MEDS: DEXTROSE 5% NACL 0.9% 1,000 ML IV SCH ×3 (05:40→22:13)
[2019-05-04] MEDS: DOCUSATE SODIUM 100 MG CAPSULE PO SCH ×2 (08:50→20:12)
[2019-05-04] MEDS ORDERED: PANTOPRAZOLE 40 MG VIAL IV SCH (09:00)
[2019-05-04] MEDS ORDERED: LOPERAMIDE 2 MG CAPSULE PO PRN (12:51)
[2019-05-04] MEDS ORDERED: ENOXAPARIN 30 MG/0.3 ML SYRINGE SUBCUT SCH (13:00)
[2019-05-04] MEDS ORDERED: ZINC OXIDE PASTE 113 GM TUBE TOP PRN (16:19)
[2019-05-04] MEDS: INSULIN LISPRO 100 UNIT/ML SUBCUT SCH ×2 (16:35→20:59)
[2019-05-04] MEDS: LISINOPRIL 10 MG TABLET PO SCH (16:35)
[2019-05-04] MEDS: PHENYTOIN ER 100 MG CAPSULE PO SCH ×2 (16:36→20:11)
[2019-05-04] MEDS: POTASSIUM CHLORIDE 20 MEQ TABLET PO SCH (20:12)
[2019-05-05 05:35] LABS: Basophils % 0.2 % (0.0-0.8); Hematocrit 26.9 VOL% (35.7-47.0); Hemoglobin 9.2 GM/DL (12.0-16.0); Immature Granulocytes % 1.1 %; Immature Granulocytes Absolute 0.18 #; Lymphocytes # 1.5 10*3/uL (1.4-4.0); Mean Corpuscular HGB Conc 34.2 GM/DL (32-36); Mean Corpuscular Volume 96.8 FL (87-102); Mean Platelet Volume 10.4 FL (9.6-12.0); Neutrophils % 84.7 % (38.7-73.9); Platelet Count 162 T/CUMM (130-400); Red Blood Count 2.78 MC/CUMM (3.8-5.5); Red Cell Distribution Width 14.4 % (9.3-17.3); White Blood Count 16.6 T/CUMM (4-12)
[2019-05-05] MEDS: DEXTROSE 5% NACL 0.9% 1,000 ML IV SCH (05:57)
[2019-05-05] MEDS: LEVOTHYROXINE 200 MCG TABLET PO SCH (06:09)
[2019-05-05 06:12] LABS: Albumin 2.3 G/DL (3.4-5.0); Bilirubin,Total 0.5 MG/DL (0.2-1.0); Calcium 7.3 MG/DL (8.5-10.1); Osmolality,Calculated 284.7 MOS/KG (273-304); Risk Ratio 2.78; Thyroid Stimulating Hormone 8.72 uIU/ml (0.358-3.74); Total Protein 5.9 G/DL (6.4-8.3); VLDL CHOLESTEROL 23.2 MG/DL
[2019-05-05] MEDS ORDERED: LEVOTHYROXINE 50 MCG TABLET PO SCH (07:00)
[2019-05-05] MEDS: PHENYTOIN ER 100 MG CAPSULE PO SCH ×3 (08:16→21:01)
[2019-05-05] MEDS ORDERED: NACL 0.9% IV SCH (08:19)
[2019-05-05] MEDS ORDERED: MAGNESIUM SULF IV SCH (08:19)
[2019-05-05] MEDS ORDERED: DEXTROSE 5% IV SCH (08:19)
[2019-05-05] MEDS ORDERED: FUROSEMIDE 80 MG TABLET PO SCH (09:00)
[2019-05-05] MEDS: INSULIN LISPRO 100 UNIT/ML SUBCUT SCH ×4 (09:26→21:51)
[2019-05-05] MEDS: POTASSIUM CHLORIDE 20 MEQ TABLET PO SCH ×2 (09:27→21:01)
[2019-05-05] MEDS: LISINOPRIL 10 MG TABLET PO SCH (09:27)
[2019-05-05] MEDS: CALCIUM (CARBONATE)/VITAMIN D 600 MG-400 UNIT TABLET PO SCH (09:27)
[2019-05-05] MEDS: PANTOPRAZOLE 40 MG TABLET PO SCH (09:27)
[2019-05-05] MEDS: DOCUSATE SODIUM 100 MG CAPSULE PO SCH ×2 (09:27→21:01)
[2019-05-05] MEDS: TAMSULOSIN 0.4 MG CAPSULE PO SCH (09:27)
[2019-05-05] MEDS: MULTIVITAMIN (CENTRUM) TABLET PO SCH (09:27)
[2019-05-05] MEDS: ENOXAPARIN 40 MG/0.4 ML SYRINGE SUBCUT SCH (09:28)
[2019-05-05] MEDS: FLUTICASONE 50 MCG NASAL SPRAY 16 GM BOTTLE BOTH NARES SCH (09:28)
[2019-05-05] MEDS: MAGNESIUM SULF INJ 2 GM in SODIUM CHLORIDE 0.45% 1,000 ML IV SCH ×2 (09:31→17:44)
[2019-05-06] MEDS: MAGNESIUM SULF INJ 2 GM in SODIUM CHLORIDE 0.45% 1,000 ML IV SCH ×2 (02:16→10:39)
[2019-05-06 05:38] LABS: Albumin 2.2 G/DL (3.4-5.0); Calcium 7.3 MG/DL (8.5-10.1); Osmolality,Calculated 276.1 MOS/KG (273-304); Total Protein 5.7 G/DL (6.4-8.3)
[2019-05-06 05:42] LABS: Basophils % 0.3 % (0.0-0.8); Eosinophils # 0.2 10*3/uL (0.0-0.87); Hematocrit 25.2 VOL% (35.7-47.0); Hemoglobin 8.6 GM/DL (12.0-16.0); Immature Granulocytes % 0.9 %; Lymphocytes # 1.3 10*3/uL (1.4-4.0); Lymphocytes % 10.9 % (21.3-54.2); Mean Corpuscular HGB Conc 34.1 GM/DL (32-36); Mean Corpuscular Volume 96.2 FL (87-102); Mean Platelet Volume 10.2 FL (9.6-12.0); Neutrophils % 79.9 % (38.7-73.9); Platelet Count 146 T/CUMM (130-400); Red Blood Count 2.62 MC/CUMM (3.8-5.5); Red Cell Distribution Width 13.9 % (9.3-17.3); White Blood Count 11.8 T/CUMM (4-12)
[2019-05-06] MEDS: LEVOTHYROXINE 75 MCG TABLET PO SCH (05:52)
[2019-05-06] MEDS: LEVOTHYROXINE 200 MCG TABLET PO SCH (06:21)
[2019-05-06] MEDS: INSULIN LISPRO 100 UNIT/ML SUBCUT SCH ×4 (08:35→22:26)
[2019-05-06] MEDS: MULTIVITAMIN (CENTRUM) TABLET PO SCH (09:13)
[2019-05-06] MEDS: FUROSEMIDE 20 MG TABLET PO SCH ×2 (09:13→17:29)
[2019-05-06] MEDS: CALCIUM (CARBONATE)/VITAMIN D 600 MG-400 UNIT TABLET PO SCH (09:13)
[2019-05-06] MEDS: DOCUSATE SODIUM 100 MG CAPSULE PO SCH ×2 (09:14→21:30)
[2019-05-06] MEDS: PHENYTOIN ER 100 MG CAPSULE PO SCH ×3 (09:15→21:31)
[2019-05-06] MEDS: TAMSULOSIN 0.4 MG CAPSULE PO SCH (09:15)
[2019-05-06] MEDS: FLUTICASONE 50 MCG NASAL SPRAY 16 GM BOTTLE BOTH NARES SCH (09:16)
[2019-05-06] MEDS: GABAPENTIN 300 MG CAPSULE PO SCH ×2 (09:16→21:31)
[2019-05-06] MEDS: ENOXAPARIN 40 MG/0.4 ML SYRINGE SUBCUT SCH (09:16)
[2019-05-06] MEDS: POTASSIUM CHLORIDE 20 MEQ TABLET PO SCH ×2 (09:16→21:30)
[2019-05-06] MEDS: PANTOPRAZOLE 40 MG TABLET PO SCH (09:17)
[2019-05-06] MEDS: LISINOPRIL 10 MG TABLET PO SCH (09:41)
[2019-05-06] MEDS: SODIUM CHLORIDE 0.45% 1,000 ML IV SCH (12:14)
[2019-05-07] MEDS: SODIUM CHLORIDE 0.45% 1,000 ML IV SCH ×3 (02:08→12:03)
[2019-05-07 05:47] LABS: Basophils % 0.2 % (0.0-0.8); Eosinophils # 0.2 10*3/uL (0.0-0.87); Eosinophils % 2.3 % (0.00-10.9); Hematocrit 25.9 VOL% (35.7-47.0); Hemoglobin 8.9 GM/DL (12.0-16.0); Immature Granulocytes % 0.8 %; Immature Granulocytes Absolute 0.07 #; Lymphocytes % 12.1 % (21.3-54.2); Mean Corpuscular HGB Conc 34.4 GM/DL (32-36); Mean Corpuscular Volume 95.2 FL (87-102); Mean Platelet Volume 10.7 FL (9.6-12.0); Monocytes % 7.3 % (1.7-12.7); Neutrophils % 77.3 % (38.7-73.9); Platelet Count 163 T/CUMM (130-400); Red Blood Count 2.72 MC/CUMM (3.8-5.5); Red Cell Distribution Width 13.5 % (9.3-17.3); White Blood Count 8.3 T/CUMM (4-12)
[2019-05-07] MEDS: LEVOTHYROXINE 75 MCG TABLET PO SCH (05:59)
[2019-05-07] MEDS: LEVOTHYROXINE 200 MCG TABLET PO SCH (05:59)
[2019-05-07 06:03] LABS: Calcium 7.8 MG/DL (8.5-10.1); Osmolality,Calculated 284.4 MOS/KG (273-304)
[2019-05-07] MEDS: FUROSEMIDE 20 MG TABLET PO SCH (08:00)
[2019-05-07] MEDS: INSULIN LISPRO 100 UNIT/ML SUBCUT SCH ×2 (08:00→12:00)
[2019-05-07] MEDS: LISINOPRIL 10 MG TABLET PO SCH (09:34)
[2019-05-07] MEDS: TAMSULOSIN 0.4 MG CAPSULE PO SCH (09:34)
[2019-05-07] MEDS: DOCUSATE SODIUM 100 MG CAPSULE PO SCH (09:34)
[2019-05-07] MEDS: CALCIUM (CARBONATE)/VITAMIN D 600 MG-400 UNIT TABLET PO SCH (09:34)
[2019-05-07] MEDS: FLUTICASONE 50 MCG NASAL SPRAY 16 GM BOTTLE BOTH NARES SCH (09:35)
[2019-05-07] MEDS: PANTOPRAZOLE 40 MG TABLET PO SCH (09:35)
[2019-05-07] MEDS: ENOXAPARIN 40 MG/0.4 ML SYRINGE SUBCUT SCH (09:35)
[2019-05-07] MEDS: PHENYTOIN ER 100 MG CAPSULE PO SCH ×2 (09:35→12:01)
[2019-05-07] MEDS: MULTIVITAMIN (CENTRUM) TABLET PO SCH (09:35)
[2019-05-07] MEDS: GABAPENTIN 300 MG CAPSULE PO SCH (09:35)
[2019-05-07] MEDS: POTASSIUM CHLORIDE 20 MEQ TABLET PO SCH (09:35)
[2019-05-07] MEDS ORDERED: INFLUENZA VIRUS VACCINE 0.5 ML SYRINGE IM ONE (11:02)
[2019-05-07 11:41] VITALS: BP 118/41
== END 2019-05-07 14:24 ==
LOC: EDUNIT# → EDBD → N.ED 13:19 → N.EDINP 13:19 → N.2E 19:29
PROVIDERS: ADMIT Family Medicine; ATTEND Family Medicine

== ENCOUNTER 2019-05-14 15:50 | Inpatient (IN) ==
[2019-05-14] MEDS ORDERED: LEVOFLOXACIN INJ 750 MG in PREMIX 1 EACH IV STA (16:24)
[2019-05-14 17:11] LABS: Apearance,Urine Slightly Hazy (Clear); Bacteria,Urine Occasional /HPF (Few); Bilirubin,Urine Negative (Negative); Blood, Urine Negative (Negative); Glucose,Urine (UA) Negative (Negative); Ketones,Urine Negative (Negative); Mucus,Urine Occasional /LPF (Occasional); Nitrite,Urine Negative (Negative); Protein,Urine Negative; RBC,Urine 3 /HPF (0-4); Squamous Epithelial Cell,Urine Occasional /HPF (0-10); Urine Color Yellow (Yellow); Urine Specific Gravity 1.008 (1.001-1.035); Urine Urobilinogen < 2.0 EU/DL (0.2-1.0); WBC,Urine 2 /HPF (0-6)
[2019-05-14] MEDS ORDERED: VANCOMYCIN INJ 1,000 MG in SODIUM CHLORIDE 0.9% 250 ML IV STA (17:26)
[2019-05-14 17:28] LABS: Basophils # 0.1 10*3/uL (0.0-0.2); Basophils % 0.2 % (0.0-0.8); Hematocrit 28.6 VOL% (35.7-47.0); Hemoglobin 9.5 GM/DL (12.0-16.0); Immature Granulocytes % 2.3 %; Immature Granulocytes Absolute 0.69 #; Lymphocytes # 1.2 10*3/uL (1.4-4.0); Lymphocytes % 4.1 % (21.3-54.2); Mean Corpuscular HGB Conc 33.2 GM/DL (32-36); Mean Corpuscular Volume 96.6 FL (87-102); Mean Platelet Volume 8.8 FL (9.6-12.0); Monocytes % 2.4 % (1.7-12.7); Platelet Count 350 T/CUMM (130-400); Red Blood Count 2.96 MC/CUMM (3.8-5.5); Red Cell Distribution Width 14.1 % (9.3-17.3); White Blood Count 29.4 T/CUMM (4-12)
[2019-05-14] MEDS ORDERED: ACETAMINOPHEN 325 MG TABLET PO PRN (17:43)
[2019-05-14] MEDS ORDERED: ONDANSETRON 4 MG/2 ML VIAL IV PRN (17:43)
[2019-05-14 17:55] LABS: Band Neutrophils 2 % (0-10); Hypochromasia Slight; Lymphocytes 1 % (20-55); Platelet Estimate Normal; Segmented Neutrophils 96 % (50-85); Total Cells Counted 100
[2019-05-14 17:57] LABS: Albumin 2.2 G/DL (3.4-5.0); Bilirubin,Total 0.6 MG/DL (0.2-1.0); Calcium 7.6 MG/DL (8.5-10.1); Osmolality,Calculated 276.7 MOS/KG (273-304); Total Protein 6.3 G/DL (6.4-8.3)
[2019-05-14] MEDS ORDERED: VANCOMYCIN INJ 1,000 MG in SODIUM CHLORIDE 0.9% 250 ML IV ONE (20:00)
[2019-05-14] MEDS: DOCUSATE SODIUM 100 MG CAPSULE PO SCH (20:58)
[2019-05-14] MEDS: INSULIN LISPRO 100 UNIT/ML SUBCUT SCH (23:57)
[2019-05-14] MEDS: INSULIN GLARGINE 100 UNIT/ML SUBCUT SCH (23:58)
[2019-05-14] MEDS: ENOXAPARIN 40 MG/0.4 ML SYRINGE SUBCUT SCH (23:59)
[2019-05-15] MEDS: LEVOTHYROXINE 75 MCG TABLET PO SCH (07:16)
[2019-05-15] MEDS ORDERED: SKIN HEALING OINT (AQUAPHOR) 50 GM TUBE TOP PRN (08:14)
[2019-05-15 08:16] LABS: Basophils % 0.2 % (0.0-0.8); Eosinophils # 0.1 10*3/uL (0.0-0.87); Eosinophils % 0.5 % (0.00-10.9); Hematocrit 25.9 VOL% (35.7-47.0); Hemoglobin 8.7 GM/DL (12.0-16.0); Immature Granulocytes % 1.4 %; Immature Granulocytes Absolute 0.21 #; Lymphocytes # 0.9 10*3/uL (1.4-4.0); Lymphocytes % 5.6 % (21.3-54.2); Mean Corpuscular HGB Conc 33.6 GM/DL (32-36); Mean Corpuscular Volume 94.5 FL (87-102); Mean Platelet Volume 9.1 FL (9.6-12.0); Monocytes % 4.2 % (1.7-12.7); Neutrophils % 88.1 % (38.7-73.9); Platelet Count 272 T/CUMM (130-400); Red Blood Count 2.74 MC/CUMM (3.8-5.5); Red Cell Distribution Width 14.4 % (9.3-17.3); White Blood Count 15.1 T/CUMM (4-12)
[2019-05-15] MEDS: SODIUM CHLORIDE 0.45% 1,000 ML IV SCH ×3 (08:51→19:00)
[2019-05-15] MEDS: LEVOFLOXACIN INJ 500 MG in PREMIX 1 EACH IV SCH (08:51)
[2019-05-15] MEDS: FLUTICASONE 50 MCG NASAL SPRAY 16 GM BOTTLE BOTH NARES SCH (08:54)
[2019-05-15] MEDS: POTASSIUM CHLORIDE 20 MEQ PACK PO SCH ×2 (08:55→21:42)
[2019-05-15] MEDS: FUROSEMIDE 80 MG TABLET PO SCH (08:55)
[2019-05-15] MEDS: PANTOPRAZOLE 40 MG TABLET PO SCH (08:55)
[2019-05-15] MEDS: CALCIUM (CARBONATE)/VITAMIN D 600 MG-400 UNIT TABLET PO SCH (08:55)
[2019-05-15] MEDS: GABAPENTIN 300 MG CAPSULE PO SCH ×2 (08:55→21:43)
[2019-05-15] MEDS: PHENYTOIN ER 100 MG CAPSULE PO SCH ×3 (08:55→21:43)
[2019-05-15] MEDS: DOCUSATE SODIUM 100 MG CAPSULE PO SCH ×2 (08:55→21:51)
[2019-05-15] MEDS: TAMSULOSIN 0.4 MG CAPSULE PO SCH (08:55)
[2019-05-15] MEDS: MULTIVITAMIN (CENTRUM) TABLET PO SCH (08:55)
[2019-05-15] MEDS: LISINOPRIL 10 MG TABLET PO SCH (08:56)
[2019-05-15] MEDS: INSULIN LISPRO 100 UNIT/ML SUBCUT SCH ×4 (09:54→21:44)
[2019-05-15] MEDS: ASPIRIN EC 81 MG TABLET PO SCH (09:54)
[2019-05-15] MEDS: CLOTRIMAZOLE/BETAMETHASONE CREAM 15 GM TUBE TOP SCH ×2 (09:55→21:50)
[2019-05-15] MEDS: VANCOMYCIN INJ 2,000 MG in SODIUM CHLORIDE 0.9% 500 ML IV SCH (17:12)
[2019-05-15] MEDS: ENOXAPARIN 40 MG/0.4 ML SYRINGE SUBCUT SCH (21:44)
[2019-05-15] MEDS: INSULIN GLARGINE 100 UNIT/ML SUBCUT SCH (21:44)
[2019-05-16] MEDS: SODIUM CHLORIDE 0.45% 1,000 ML IV SCH ×2 (04:18→07:00)
[2019-05-16 05:53] LABS: Basophils % 0.4 % (0.0-0.8); Eosinophils # 0.2 10*3/uL (0.0-0.87); Eosinophils % 2.7 % (0.00-10.9); Hematocrit 24.1 VOL% (35.7-47.0); Hemoglobin 8.1 GM/DL (12.0-16.0); Immature Granulocytes % 1.5 %; Immature Granulocytes Absolute 0.12 #; Lymphocytes % 12.1 % (21.3-54.2); Mean Corpuscular HGB Conc 33.6 GM/DL (32-36); Mean Corpuscular Volume 94.5 FL (87-102); Mean Platelet Volume 9.2 FL (9.6-12.0); Monocytes % 6.7 % (1.7-12.7); Neutrophils % 76.6 % (38.7-73.9); Platelet Count 269 T/CUMM (130-400); Red Blood Count 2.55 MC/CUMM (3.8-5.5); Red Cell Distribution Width 13.6 % (9.3-17.3); White Blood Count 8.2 T/CUMM (4-12)
[2019-05-16 06:16] LABS: Alanine Aminotransferase 20 U/L (13-56); Alkaline Phosphatase 90 U/L (45-117); Aspartate Amino Transferase 20 U/L (0-37); Bilirubin,Total < 0.39 MG/DL (0.2-1.0); Blood Urea Nitrogen 29 MG/DL (7-18); Calcium 7.5 MG/DL (8.5-10.1); Estimated Glom Filtration Rate 79 ML/MIN; Glucose 170 MG/DL (74-106); HDL Cholesterol 32 MG/DL (40-60); Osmolality,Calculated 266.1 MOS/KG (273-304); Risk Ratio 4.31; Total Protein 5.9 G/DL (6.4-8.3); Triglycerides 163 MG/DL (2-150); VLDL CHOLESTEROL 32.6 MG/DL
[2019-05-16] MEDS: LEVOTHYROXINE 75 MCG TABLET PO SCH (07:34)
[2019-05-16] MEDS: CALCIUM (CARBONATE)/VITAMIN D 600 MG-400 UNIT TABLET PO SCH (08:54)
[2019-05-16] MEDS: FUROSEMIDE 80 MG TABLET PO SCH (08:55)
[2019-05-16] MEDS: MULTIVITAMIN (CENTRUM) TABLET PO SCH (08:55)
[2019-05-16] MEDS: LISINOPRIL 10 MG TABLET PO SCH (08:55)
[2019-05-16] MEDS: ASPIRIN EC 81 MG TABLET PO SCH (08:55)
[2019-05-16] MEDS: PANTOPRAZOLE 40 MG TABLET PO SCH (08:55)
[2019-05-16] MEDS: PHENYTOIN ER 100 MG CAPSULE PO SCH ×3 (08:55→20:24)
[2019-05-16] MEDS: TAMSULOSIN 0.4 MG CAPSULE PO SCH (08:55)
[2019-05-16] MEDS: DOCUSATE SODIUM 100 MG CAPSULE PO SCH ×2 (08:55→20:24)
[2019-05-16] MEDS: GABAPENTIN 300 MG CAPSULE PO SCH ×2 (08:55→20:25)
[2019-05-16] MEDS: FLUTICASONE 50 MCG NASAL SPRAY 16 GM BOTTLE BOTH NARES SCH (08:57)
[2019-05-16] MEDS: POTASSIUM CHLORIDE 20 MEQ PACK PO SCH ×2 (08:57→20:24)
[2019-05-16] MEDS: INSULIN LISPRO 100 UNIT/ML SUBCUT SCH ×4 (08:59→20:57)
[2019-05-16] MEDS: LEVOFLOXACIN INJ 500 MG in PREMIX 1 EACH IV SCH (09:02)
[2019-05-16] MEDS: POTASSIUM CHLORIDE INJ 20 MEQ, MAGNESIUM SULF INJ 2 GM in SODIUM CHLORIDE 0.45% 1,000 ML IV SCH ×2 (09:02→23:01)
[2019-05-16] MEDS: CLOTRIMAZOLE/BETAMETHASONE CREAM 15 GM TUBE TOP SCH ×2 (09:07→20:58)
[2019-05-16] MEDS: VANCOMYCIN INJ 2,000 MG in SODIUM CHLORIDE 0.9% 500 ML IV SCH (18:13)
[2019-05-16] MEDS: ENOXAPARIN 40 MG/0.4 ML SYRINGE SUBCUT SCH (20:23)
[2019-05-16] MEDS: guaiFENesin 200 MG/10 ML UDCUP PO PRN (20:57)
[2019-05-16] MEDS: INSULIN GLARGINE 100 UNIT/ML SUBCUT SCH (20:58)
[2019-05-17 05:01] LABS: Basophils % 0.5 % (0.0-0.8); Eosinophils # 0.3 10*3/uL (0.0-0.87); Eosinophils % 4.9 % (0.00-10.9); Hematocrit 25.9 VOL% (35.7-47.0); Hemoglobin 8.6 GM/DL (12.0-16.0); Immature Granulocytes % 1.9 %; Immature Granulocytes Absolute 0.11 #; Lymphocytes # 1.1 10*3/uL (1.4-4.0); Lymphocytes % 19.9 % (21.3-54.2); Mean Corpuscular HGB Conc 33.2 GM/DL (32-36); Mean Corpuscular Volume 94.5 FL (87-102); Mean Platelet Volume 9.4 FL (9.6-12.0); Monocytes % 7.1 % (1.7-12.7); Neutrophils % 65.7 % (38.7-73.9); Platelet Count 278 T/CUMM (130-400); Red Blood Count 2.74 MC/CUMM (3.8-5.5); Red Cell Distribution Width 13.5 % (9.3-17.3); White Blood Count 5.7 T/CUMM (4-12)
[2019-05-17 05:21] LABS: Calcium 7.5 MG/DL (8.5-10.1); Osmolality,Calculated 264.8 MOS/KG (273-304)
[2019-05-17] MEDS: LEVOTHYROXINE 100 MCG TABLET PO SCH (05:58)
[2019-05-17] MEDS: INSULIN LISPRO 100 UNIT/ML SUBCUT SCH ×4 (09:01→22:14)
[2019-05-17] MEDS: DOCUSATE SODIUM 100 MG CAPSULE PO SCH ×2 (09:06→21:11)
[2019-05-17] MEDS: PANTOPRAZOLE 40 MG TABLET PO SCH (09:06)
[2019-05-17] MEDS: FUROSEMIDE 80 MG TABLET PO SCH (09:06)
[2019-05-17] MEDS: GABAPENTIN 300 MG CAPSULE PO SCH ×2 (09:06→21:11)
[2019-05-17] MEDS: LISINOPRIL 10 MG TABLET PO SCH (09:07)
[2019-05-17] MEDS: MULTIVITAMIN (CENTRUM) TABLET PO SCH (09:07)
[2019-05-17] MEDS: PHENYTOIN ER 100 MG CAPSULE PO SCH ×3 (09:07→21:11)
[2019-05-17] MEDS: ASPIRIN EC 81 MG TABLET PO SCH (09:07)
[2019-05-17] MEDS: TAMSULOSIN 0.4 MG CAPSULE PO SCH (09:07)
[2019-05-17] MEDS: CALCIUM (CARBONATE)/VITAMIN D 600 MG-400 UNIT TABLET PO SCH (09:07)
[2019-05-17] MEDS: LEVOFLOXACIN INJ 500 MG in PREMIX 1 EACH IV SCH (09:11)
[2019-05-17] MEDS: CLOTRIMAZOLE/BETAMETHASONE CREAM 15 GM TUBE TOP SCH ×2 (09:15→22:14)
[2019-05-17] MEDS: FLUTICASONE 50 MCG NASAL SPRAY 16 GM BOTTLE BOTH NARES SCH (09:15)
[2019-05-17] MEDS: POTASSIUM CHLORIDE 20 MEQ PACK PO SCH ×2 (09:15→21:11)
[2019-05-17] MEDS: guaiFENesin 200 MG/10 ML UDCUP PO PRN ×2 (09:18→21:16)
[2019-05-17] MEDS: POTASSIUM CHLORIDE INJ 20 MEQ, MAGNESIUM SULF INJ 2 GM in SODIUM CHLORIDE 0.45% 1,000 ML IV SCH (09:19)
[2019-05-17] MEDS: VANCOMYCIN INJ 2,000 MG in SODIUM CHLORIDE 0.9% 500 ML IV SCH (18:19)
[2019-05-17] MEDS: ENOXAPARIN 40 MG/0.4 ML SYRINGE SUBCUT SCH (21:11)
[2019-05-17] MEDS: INSULIN GLARGINE 100 UNIT/ML SUBCUT SCH (22:14)
[2019-05-18] MEDS: POTASSIUM CHLORIDE INJ 20 MEQ, MAGNESIUM SULF INJ 2 GM in SODIUM CHLORIDE 0.45% 1,000 ML IV SCH (01:34)
[2019-05-18 04:55] LABS: Calcium 7.9 MG/DL (8.5-10.1); Osmolality,Calculated 266.5 MOS/KG (273-304)
[2019-05-18] MEDS: LEVOTHYROXINE 100 MCG TABLET PO SCH (05:37)
[2019-05-18] MEDS: INSULIN LISPRO 100 UNIT/ML SUBCUT SCH ×4 (07:50→20:40)
[2019-05-18] MEDS: CALCIUM (CARBONATE)/VITAMIN D 600 MG-400 UNIT TABLET PO SCH (09:32)
[2019-05-18] MEDS: GABAPENTIN 300 MG CAPSULE PO SCH ×2 (09:32→20:36)
[2019-05-18] MEDS: PHENYTOIN ER 100 MG CAPSULE PO SCH ×3 (09:32→20:36)
[2019-05-18] MEDS: TAMSULOSIN 0.4 MG CAPSULE PO SCH (09:32)
[2019-05-18] MEDS: MULTIVITAMIN (CENTRUM) TABLET PO SCH (09:32)
[2019-05-18] MEDS: PANTOPRAZOLE 40 MG TABLET PO SCH (09:33)
[2019-05-18] MEDS: DOCUSATE SODIUM 100 MG CAPSULE PO SCH ×2 (09:33→20:36)
[2019-05-18] MEDS: LISINOPRIL 10 MG TABLET PO SCH (09:33)
[2019-05-18] MEDS: ASPIRIN EC 81 MG TABLET PO SCH (09:33)
[2019-05-18] MEDS: FUROSEMIDE 80 MG TABLET PO SCH (09:33)
[2019-05-18] MEDS: POTASSIUM CHLORIDE 20 MEQ PACK PO SCH ×2 (09:34→20:40)
[2019-05-18] MEDS: FLUTICASONE 50 MCG NASAL SPRAY 16 GM BOTTLE BOTH NARES SCH (09:34)
[2019-05-18] MEDS: CLOTRIMAZOLE/BETAMETHASONE CREAM 15 GM TUBE TOP SCH ×2 (09:34→20:37)
[2019-05-18] MEDS: LEVOFLOXACIN INJ 500 MG in PREMIX 1 EACH IV SCH (09:34)
[2019-05-18] MEDS: guaiFENesin 200 MG/10 ML UDCUP PO PRN (14:56)
[2019-05-18] MEDS: VANCOMYCIN INJ 2,000 MG in SODIUM CHLORIDE 0.9% 500 ML IV SCH (17:45)
[2019-05-18] MEDS: ENOXAPARIN 40 MG/0.4 ML SYRINGE SUBCUT SCH (20:35)
[2019-05-18] MEDS: INSULIN GLARGINE 100 UNIT/ML SUBCUT SCH (20:36)
[2019-05-19] MEDS: POTASSIUM CHLORIDE INJ 20 MEQ, MAGNESIUM SULF INJ 2 GM in SODIUM CHLORIDE 0.45% 1,000 ML IV SCH (02:23)
[2019-05-19] MEDS: LEVOTHYROXINE 100 MCG TABLET PO SCH (05:57)
[2019-05-19] MEDS: GABAPENTIN 300 MG CAPSULE PO SCH (08:59)
[2019-05-19] MEDS: LISINOPRIL 10 MG TABLET PO SCH (08:59)
[2019-05-19] MEDS: CALCIUM (CARBONATE)/VITAMIN D 600 MG-400 UNIT TABLET PO SCH (08:59)
[2019-05-19] MEDS: DOCUSATE SODIUM 100 MG CAPSULE PO SCH (08:59)
[2019-05-19] MEDS: ASPIRIN EC 81 MG TABLET PO SCH (08:59)
[2019-05-19] MEDS: MULTIVITAMIN (CENTRUM) TABLET PO SCH (08:59)
[2019-05-19] MEDS: FUROSEMIDE 80 MG TABLET PO SCH (09:00)
[2019-05-19] MEDS: PHENYTOIN ER 100 MG CAPSULE PO SCH (09:00)
[2019-05-19] MEDS: TAMSULOSIN 0.4 MG CAPSULE PO SCH (09:00)
[2019-05-19] MEDS: POTASSIUM CHLORIDE 20 MEQ PACK PO SCH (09:01)
[2019-05-19] MEDS: PANTOPRAZOLE 40 MG TABLET PO SCH (09:02)
[2019-05-19] MEDS: CLOTRIMAZOLE/BETAMETHASONE CREAM 15 GM TUBE TOP SCH (09:02)
[2019-05-19] MEDS: INSULIN LISPRO 100 UNIT/ML SUBCUT SCH ×2 (09:02→11:57)
[2019-05-19] MEDS: FLUTICASONE 50 MCG NASAL SPRAY 16 GM BOTTLE BOTH NARES SCH (09:03)
[2019-05-19] MEDS: guaiFENesin 200 MG/10 ML UDCUP PO PRN (09:10)
[2019-05-19 11:53] VITALS: BP 141/49
[2019-05-19] MEDS: LEVOFLOXACIN INJ 500 MG in PREMIX 1 EACH IV SCH (11:57)
[2019-05-19] MEDS ORDERED: DOXYCYCLINE HYCLATE 100 MG CAPSULE PO SCH (17:00)
== END 2019-05-19 11:57 | DRG 872 ==
LOC: N.ED 15:50 → N.EDINP 17:42 → N.2E 18:27
PROVIDERS: ADMIT Family Medicine; ATTEND Family Medicine

== ENCOUNTER 2021-03-19 09:58 | Observation (INO) ==
[2021-03-19 11:26] LABS: Basophils # 0.1 10*3/uL (0.0-0.2); Eosinophils # 0.4 10*3/uL (0.0-0.87); Eosinophils % 7.8 % (0.00-10.9); Hematocrit 33.1 VOL% (35.7-47.0); Hemoglobin 10.5 GM/DL (12.0-16.0); Immature Granulocytes % 0.6 %; Immature Granulocytes Absolute 0.03 #; Lymphocytes # 1.3 10*3/uL (1.4-4.0); Lymphocytes % 26.8 % (21.3-54.2); Mean Corpuscular HGB Conc 31.7 GM/DL (32-36); Monocytes % 7.3 % (1.7-12.7); Neutrophils % 56.5 % (38.7-73.9); Platelet Count 163 T/CUMM (130-400); Red Blood Count 3.31 MC/CUMM (3.8-5.5); Red Cell Distribution Width 16.5 % (9.3-17.3); White Blood Count 4.8 T/CUMM (4-12)
[2021-03-19 11:45] LABS: Calcium 7.9 MG/DL (8.5-10.1); Osmolality,Calculated 318.8 MOS/KG (273-304)
[2021-03-19 11:50] LABS: Potassium 6.2 MMOL/L (3.5-5.1)
[2021-03-19] MEDS ORDERED: ONDANSETRON 4 MG/2 ML VIAL IV PRN (14:10)
[2021-03-19] MEDS ORDERED: INSULIN REGULAR 100 UNIT/ML IV ONE (14:10)
[2021-03-19] MEDS ORDERED: CALCIUM GLUCONATE 1,000 MG in SODIUM CHLORIDE 0.9% 100 ML IV ONE (14:10)
[2021-03-19] MEDS ORDERED: DEXTROSE 50% 25 GM/50 ML VIAL IV ONE (14:10)
[2021-03-19] MEDS ORDERED: GLUCAGON 1 MG VIAL IM PRN (14:10)
[2021-03-19] MEDS ORDERED: ACETAMINOPHEN 325 MG TABLET PO PRN (14:10)
[2021-03-19] MEDS ORDERED: DEXTROSE 50% 25 GM/50 ML VIAL IV PRN (14:10)
[2021-03-19 16:49] LABS: Basophils # 0.1 10*3/uL (0.0-0.2); Basophils % 0.8 % (0.0-0.8); Eosinophils # 0.4 10*3/uL (0.0-0.87); Eosinophils % 6.9 % (0.00-10.9); Hematocrit 31.1 VOL% (35.7-47.0); Hemoglobin 9.9 GM/DL (12.0-16.0); Immature Granulocytes % 0.2 %; Immature Granulocytes Absolute 0.01 #; Lymphocytes # 1.9 10*3/uL (1.4-4.0); Lymphocytes % 30.3 % (21.3-54.2); Mean Corpuscular HGB Conc 31.8 GM/DL (32-36); Mean Corpuscular Volume 99.4 FL (87-102); Mean Platelet Volume 9.7 FL (9.6-12.0); Monocytes % 6.9 % (1.7-12.7); Neutrophils % 54.9 % (38.7-73.9); Platelet Count 171 T/CUMM (130-400); Red Blood Count 3.13 MC/CUMM (3.8-5.5); Red Cell Distribution Width 16.5 % (9.3-17.3); White Blood Count 6.2 T/CUMM (4-12)
[2021-03-19 17:19] LABS: Folate 5.48 NG/ML (5.38-24.0); Vitamin B12 731 PG/ML (211-911)
[2021-03-19 17:53] LABS: Sedimentation Rate-Westergren 96 MM/HR (0-30)
[2021-03-19] MEDS: PANTOPRAZOLE 40 MG TABLET PO SCH (17:55)
[2021-03-19] MEDS: ENOXAPARIN 40 MG/0.4 ML SYRINGE SUBCUT SCH (18:02)
[2021-03-19] MEDS: SODIUM CHLORIDE 0.9% 1,000 ML IV SCH (18:05)
[2021-03-20 04:38] LABS: Basophils # 0.1 10*3/uL (0.0-0.2); Basophils % 1.3 % (0.0-0.8); Eosinophils # 0.3 10*3/uL (0.0-0.87); Hematocrit 29.2 VOL% (35.7-47.0); Hemoglobin 9.5 GM/DL (12.0-16.0); Immature Granulocytes % 0.3 %; Immature Granulocytes Absolute 0.01 #; Lymphocytes # 1.3 10*3/uL (1.4-4.0); Lymphocytes % 33.8 % (21.3-54.2); Mean Corpuscular HGB Conc 32.5 GM/DL (32-36); Mean Corpuscular Volume 99.3 FL (87-102); Neutrophils % 48.6 % (38.7-73.9); Platelet Count 136 T/CUMM (130-400); Red Blood Count 2.94 MC/CUMM (3.8-5.5); Red Cell Distribution Width 16.5 % (9.3-17.3); White Blood Count 3.8 T/CUMM (4-12)
[2021-03-20 05:13] LABS: Calcium 8.1 MG/DL (8.5-10.1); Potassium 5.9 MMOL/L (3.5-5.1); Risk Ratio 6.17; Thyroid Stimulating Hormone 80.5 uIU/ml (0.358-3.74); VLDL Cholesterol 77.4 MG/DL
[2021-03-20] MEDS: SODIUM CHLORIDE 0.9% 1,000 ML IV SCH (05:16)
[2021-03-20] MEDS: PANTOPRAZOLE 40 MG TABLET PO SCH (08:44)
[2021-03-20] MEDS ORDERED: SODIUM POLYSTYRENE SULFATE 15 GM/60 ML BOTTLE PO ONE (09:07)
[2021-03-20] MEDS ORDERED: DEXTROSE 50% 25 GM/50 ML VIAL IV ONE (09:07)
[2021-03-20] MEDS ORDERED: INSULIN REGULAR 100 UNIT/ML IV ONE (09:07)
[2021-03-20] MEDS: MULTIVITAMIN (CENTRUM) TABLET PO SCH (10:56)
[2021-03-20] MEDS: PHENYTOIN ER 100 MG CAPSULE PO SCH (12:15)
[2021-03-20 14:24] LABS: Osmolality,Calculated 312.7 MOS/KG (273-304)
[2021-03-20] MEDS: ENOXAPARIN 40 MG/0.4 ML SYRINGE SUBCUT SCH (15:16)
[2021-03-21 05:34] LABS: Basophils % 0.9 % (0.0-0.8); Eosinophils # 0.3 10*3/uL (0.0-0.87); Eosinophils % 7.9 % (0.00-10.9); Hematocrit 29.3 VOL% (35.7-47.0); Hemoglobin 9.3 GM/DL (12.0-16.0); Immature Granulocytes % 0.6 %; Immature Granulocytes Absolute 0.02 #; Lymphocytes # 1.1 10*3/uL (1.4-4.0); Lymphocytes % 33.4 % (21.3-54.2); Mean Corpuscular HGB Conc 31.7 GM/DL (32-36); Mean Corpuscular Volume 100.3 FL (87-102); Monocytes % 7.9 % (1.7-12.7); Neutrophils % 49.3 % (38.7-73.9); Platelet Count 142 T/CUMM (130-400); Red Blood Count 2.92 MC/CUMM (3.8-5.5); Red Cell Distribution Width 16.2 % (9.3-17.3); White Blood Count 3.3 T/CUMM (4-12)
[2021-03-21 06:08] LABS: Calcium 8.2 MG/DL (8.5-10.1); Osmolality,Calculated 315.4 MOS/KG (273-304); Potassium 4.6 MMOL/L (3.5-5.1)
[2021-03-21] MEDS ORDERED: LEVOTHYROXINE 125 MCG TABLET PO SCH (06:30)
[2021-03-21] MEDS: MULTIVITAMIN (CENTRUM) TABLET PO SCH (08:54)
[2021-03-21] MEDS: PANTOPRAZOLE 40 MG TABLET PO SCH (08:54)
[2021-03-21] MEDS: PHENYTOIN ER 100 MG CAPSULE PO SCH (12:37)
[2021-03-21 12:42] VITALS: BP 142/50
[2021-03-21] MEDS: ENOXAPARIN 40 MG/0.4 ML SYRINGE SUBCUT SCH (14:44)
[2021-03-21 17:53] LABS: Hemoglobin A1 (Alkaline) 98.1 % (96.5-98.5); Hemoglobin A2 (Alkaline) 1.9 % (1.5-3.5)
== END 2021-03-21 14:40 | disposition swing bed (61) ==
LOC: EDBD → EDUNIT# → N.EDINP 09:58 → N.ED 09:58 → N.EDINP 15:27 → N.TELEN 15:53
PROVIDERS: ADMIT Internal Medicine; ATTEND Internal Medicine

== ENCOUNTER 2021-04-04 12:32 | Inpatient (IN) ==
[2021-04-04 14:11] LABS: Basophils # 0.1 10*3/uL (0.0-0.2); Basophils % 0.9 % (0.0-0.8); Eosinophils # 0.3 10*3/uL (0.0-0.87); Eosinophils % 5.1 % (0.00-10.9); Hematocrit 32.6 VOL% (35.7-47.0); Hemoglobin 10.5 GM/DL (12.0-16.0); Immature Granulocytes % 0.9 %; Immature Granulocytes Absolute 0.05 #; Lymphocytes # 1.4 10*3/uL (1.4-4.0); Lymphocytes % 23.9 % (21.3-54.2); Mean Corpuscular HGB Conc 32.2 GM/DL (32-36); Mean Platelet Volume 9.4 FL (9.6-12.0); Monocytes % 9.9 % (1.7-12.7); Neutrophils % 59.3 % (38.7-73.9); Platelet Count 254 T/CUMM (130-400); Red Blood Count 3.26 MC/CUMM (3.8-5.5); Red Cell Distribution Width 15.9 % (9.3-17.3); White Blood Count 5.7 T/CUMM (4-12)
[2021-04-04 14:19] LABS: Bilirubin,Urine Negative (Negative); Blood, Urine Small mg/dL (Negative); Glucose,Urine (UA) Negative (Negative); Hyaline Casts,Urine 6 /LPF (0-3); Ketones,Urine Negative (Negative); Mucus,Urine Occasional /LPF (Occasional); Nitrite,Urine Negative (Negative); Protein,Urine Negative; RBC,Urine <1 /HPF (0-4); Squamous Epithelial Cell,Urine Occasional /HPF (0-10); Urine Appearance Slightly Hazy (Clear); Urine Color Yellow (Yellow); Urine Specific Gravity 1.008 (1.001-1.035); Urine Urobilinogen < 2.0 EU/DL (0.2-1.0)
[2021-04-04 14:53] LABS: Alanine Aminotransferase 17 U/L (13-56); Albumin 3.5 G/DL (3.4-5.0); Alkaline Phosphatase 186 U/L (45-117); Aspartate Amino Transferase 16 U/L (0-37); Bilirubin,Total < 0.39 MG/DL (0.20-1.00); Blood Urea Nitrogen 56 MG/DL (7-18); Calcium 7.8 MG/DL (8.5-10.1); Carbon Dioxide 26 MMOL/L (21-32); Estimated Glom Filtration Rate 55 ML/MIN; Glucose 158 MG/DL (74-106); Osmolality,Calculated 282.5 MOS/KG (273-304); Potassium 5.7 MMOL/L (3.5-5.1); Sodium 132 MMOL/L (136-145); Total Protein 7.3 G/DL (6.4-8.2)
[2021-04-04] MEDS ORDERED: SODIUM CHLORIDE 0.9% 1,000 ML IV STA (15:47)
[2021-04-04] MEDS ORDERED: DEXTROSE 50% 25 GM/50 ML VIAL IV PRN (18:46)
[2021-04-04] MEDS ORDERED: GLUCAGON 1 MG VIAL IM PRN (18:46)
[2021-04-04] MEDS ORDERED: ACETAMINOPHEN 325 MG TABLET PO PRN (18:46)
[2021-04-04] MEDS ORDERED: guaiFENesin 200 MG/10 ML UDCUP PO PRN (18:55)
[2021-04-04] MEDS ORDERED: LACTULOSE 20 GM/30 ML UDCUP PO SCH (19:00)
[2021-04-04 19:29] LABS: Prolactin 13.6 ng/mL (2.8-29.2)
[2021-04-04] MEDS ORDERED: ALBUTEROL 2.5 MG/3 ML NEB RESP TX PRN (19:45)
[2021-04-04] MEDS: DOCUSATE SODIUM 100 MG CAPSULE PO SCH (20:51)
[2021-04-04] MEDS: LACTULOSE 20 GM/30 ML UDCUP PO SCH ×2 (20:51→23:51)
[2021-04-04] MEDS: INSULIN LISPRO 100 UNIT/ML SUBCUT SCH (20:52)
[2021-04-04] MEDS ORDERED: NYSTATIN OINT 15 GM TUBE TOP SCH (21:00)
[2021-04-05] MEDS: LACTULOSE 20 GM/30 ML UDCUP PO SCH ×5 (02:34→22:30)
[2021-04-05] MEDS: BENZONATATE 100 MG CAPSULE PO PRN (04:10)
[2021-04-05 05:16] LABS: Basophils # 0.1 10*3/uL (0.0-0.2); Eosinophils # 0.3 10*3/uL (0.0-0.87); Eosinophils % 5.4 % (0.00-10.9); Hematocrit 32.3 VOL% (35.7-47.0); Hemoglobin 10.3 GM/DL (12.0-16.0); Immature Granulocytes % 0.9 %; Immature Granulocytes Absolute 0.05 #; Lymphocytes # 1.7 10*3/uL (1.4-4.0); Lymphocytes % 28.8 % (21.3-54.2); Mean Corpuscular HGB Conc 31.9 GM/DL (32-36); Mean Corpuscular Volume 101.6 FL (87-102); Mean Platelet Volume 9.1 FL (9.6-12.0); Monocytes % 8.7 % (1.7-12.7); Neutrophils % 55.2 % (38.7-73.9); Platelet Count 239 T/CUMM (130-400); Red Blood Count 3.18 MC/CUMM (3.8-5.5); Red Cell Distribution Width 15.7 % (9.3-17.3); White Blood Count 5.7 T/CUMM (4-12)
[2021-04-05 05:54] LABS: Albumin 3.3 G/DL (3.4-5.0); Bilirubin,Total 0.4 MG/DL (0.20-1.00); Calcium 7.9 MG/DL (8.5-10.1); Osmolality,Calculated 284.1 MOS/KG (273-304); Potassium 5.4 MMOL/L (3.5-5.1); Thyroid Stimulating Hormone 77.1 uIU/ml (0.358-3.74); Total Protein 7.1 G/DL (6.4-8.2)
[2021-04-05] MEDS: LEVOTHYROXINE 125 MCG TABLET PO SCH (06:20)
[2021-04-05] MEDS: INSULIN LISPRO 100 UNIT/ML SUBCUT SCH ×4 (08:45→22:30)
[2021-04-05] MEDS: CETIRIZINE 10 MG TABLET PO SCH (10:03)
[2021-04-05] MEDS: DOCUSATE SODIUM 100 MG CAPSULE PO SCH ×2 (10:03→22:31)
[2021-04-05] MEDS: NYSTATIN CREAM 15 GM TUBE TOP SCH ×2 (10:03→22:31)
[2021-04-05] MEDS: FUROSEMIDE 40 MG TABLET PO SCH (10:03)
[2021-04-05] MEDS: MULTIVITAMIN (CENTRUM) TABLET PO SCH (10:03)
[2021-04-05] MEDS: DESITIN 4OZ/NYSTATIN 15 GRAM MIXTURE PASTE TOP SCH ×2 (16:03→22:31)
[2021-04-05] MEDS: CARBOXYMETHYLCELLULOSE 1% OPH SOLN BOTH EYES SCH (16:04)
[2021-04-06] MEDS: LACTULOSE 20 GM/30 ML UDCUP PO SCH ×7 (00:37→23:45)
[2021-04-06] MEDS: LEVOTHYROXINE 125 MCG TABLET PO SCH (05:53)
[2021-04-06 06:15] LABS: Alanine Aminotransferase 19 U/L (13-56); Albumin 3.4 G/DL (3.4-5.0); Alkaline Phosphatase 188 U/L (45-117); Aspartate Amino Transferase 16 U/L (0-37); Bilirubin,Total < 0.39 MG/DL (0.20-1.00); Blood Urea Nitrogen 51 MG/DL (7-18); Calcium 8.2 MG/DL (8.5-10.1); Carbon Dioxide 25 MMOL/L (21-32); Estimated Glom Filtration Rate 42 ML/MIN; Glucose 170 MG/DL (74-106); Osmolality,Calculated 281.5 MOS/KG (273-304); Potassium 5.3 MMOL/L (3.5-5.1); Sodium 132 MMOL/L (136-145); Total Protein 7.1 G/DL (6.4-8.2)
[2021-04-06] MEDS ORDERED: MAGNESIUM HYDROXIDE SUSP 30 ML UDCUP PO PRN (07:55)
[2021-04-06] MEDS: CETIRIZINE 10 MG TABLET PO SCH (09:32)
[2021-04-06] MEDS: FLUTICASONE 50 MCG NASAL SPRAY 16 GM BOTTLE BOTH NARES SCH (09:32)
[2021-04-06] MEDS: INSULIN LISPRO 100 UNIT/ML SUBCUT SCH ×4 (09:32→20:53)
[2021-04-06] MEDS: FUROSEMIDE 40 MG TABLET PO SCH (09:32)
[2021-04-06] MEDS: DOCUSATE SODIUM 100 MG CAPSULE PO SCH ×2 (09:32→20:25)
[2021-04-06] MEDS: MULTIVITAMIN (CENTRUM) TABLET PO SCH (09:32)
[2021-04-06] MEDS: CALCIUM (CARBONATE)/VITAMIN D 600 MG-400 UNIT TABLET PO SCH (09:32)
[2021-04-06] MEDS: DESITIN 4OZ/NYSTATIN 15 GRAM MIXTURE PASTE TOP SCH ×2 (09:33→20:26)
[2021-04-06] MEDS: NYSTATIN CREAM 15 GM TUBE TOP SCH ×2 (09:33→20:26)
[2021-04-06] MEDS: CARBOXYMETHYLCELLULOSE 1% OPH SOLN BOTH EYES SCH (09:39)
[2021-04-06] MEDS ORDERED: FUROSEMIDE 40 MG/4 ML VIAL IV ONE (10:20)
[2021-04-07] MEDS: LACTULOSE 20 GM/30 ML UDCUP PO SCH ×2 (03:26→06:15)
[2021-04-07 05:48] LABS: Alanine Aminotransferase 18 U/L (13-56); Albumin 3.3 G/DL (3.4-5.0); Alkaline Phosphatase 202 U/L (45-117); Aspartate Amino Transferase 20 U/L (0-37); Bilirubin,Total < 0.39 MG/DL (0.20-1.00); Blood Urea Nitrogen 55 MG/DL (7-18); Calcium 8.1 MG/DL (8.5-10.1); Carbon Dioxide 21 MMOL/L (21-32); Estimated Glom Filtration Rate 31 ML/MIN; Glucose 158 MG/DL (74-106); Osmolality,Calculated 274.1 MOS/KG (273-304); Potassium 5.7 MMOL/L (3.5-5.1); Sodium 128 MMOL/L (136-145)
[2021-04-07] MEDS: LEVOTHYROXINE 125 MCG TABLET PO SCH (06:14)
[2021-04-07] MEDS: INSULIN LISPRO 100 UNIT/ML SUBCUT SCH ×4 (09:09→20:33)
[2021-04-07] MEDS: FLUTICASONE 50 MCG NASAL SPRAY 16 GM BOTTLE BOTH NARES SCH (09:15)
[2021-04-07] MEDS: SODIUM CHLORIDE 0.65% NASAL SPRAY 45 ML BOTTLE BOTH NARES PRN (09:15)
[2021-04-07] MEDS: FUROSEMIDE 40 MG TABLET PO SCH (09:16)
[2021-04-07] MEDS: DESITIN 4OZ/NYSTATIN 15 GRAM MIXTURE PASTE TOP SCH ×2 (09:16→20:16)
[2021-04-07] MEDS: CARBOXYMETHYLCELLULOSE 1% OPH SOLN BOTH EYES SCH (09:16)
[2021-04-07] MEDS: CETIRIZINE 10 MG TABLET PO SCH (09:17)
[2021-04-07] MEDS: CALCIUM (CARBONATE)/VITAMIN D 600 MG-400 UNIT TABLET PO SCH (09:17)
[2021-04-07] MEDS: NYSTATIN CREAM 15 GM TUBE TOP SCH ×2 (09:17→20:16)
[2021-04-07] MEDS: MULTIVITAMIN (CENTRUM) TABLET PO SCH (09:17)
[2021-04-07] MEDS: DOCUSATE SODIUM 100 MG CAPSULE PO SCH ×2 (09:17→20:14)
[2021-04-07] MEDS: SODIUM ZIRCONIUM CYCLOSILICATE 10 GM PACK PO SCH ×3 (10:20→20:17)
[2021-04-07] MEDS: ENOXAPARIN 40 MG/0.4 ML SYRINGE SUBCUT SCH (15:33)
[2021-04-08 05:40] LABS: Albumin 3.2 G/DL (3.4-5.0); Bilirubin,Total 0.4 MG/DL (0.20-1.00); Calcium 8.1 MG/DL (8.5-10.1); Osmolality,Calculated 271.4 MOS/KG (273-304); Potassium 5.1 MMOL/L (3.5-5.1); Total Protein 6.8 G/DL (6.4-8.2)
[2021-04-08] MEDS: LEVOTHYROXINE 125 MCG TABLET PO SCH (05:46)
[2021-04-08] MEDS: DOCUSATE SODIUM 100 MG CAPSULE PO SCH ×2 (09:20→20:52)
[2021-04-08] MEDS: MULTIVITAMIN (CENTRUM) TABLET PO SCH (09:20)
[2021-04-08] MEDS: CARBOXYMETHYLCELLULOSE 1% OPH SOLN BOTH EYES SCH (09:20)
[2021-04-08] MEDS: LACTULOSE 20 GM/30 ML UDCUP PO SCH (09:20)
[2021-04-08] MEDS: CETIRIZINE 10 MG TABLET PO SCH (09:20)
[2021-04-08] MEDS: INSULIN LISPRO 100 UNIT/ML SUBCUT SCH ×4 (09:20→21:04)
[2021-04-08] MEDS: FUROSEMIDE 40 MG TABLET PO SCH (09:20)
[2021-04-08] MEDS: CALCIUM (CARBONATE)/VITAMIN D 600 MG-400 UNIT TABLET PO SCH (09:20)
[2021-04-08] MEDS: SODIUM ZIRCONIUM CYCLOSILICATE 10 GM PACK PO SCH ×3 (09:21→20:52)
[2021-04-08] MEDS: NYSTATIN CREAM 15 GM TUBE TOP SCH ×2 (09:21→20:52)
[2021-04-08] MEDS: FLUTICASONE 50 MCG NASAL SPRAY 16 GM BOTTLE BOTH NARES SCH (09:21)
[2021-04-08] MEDS: DESITIN 4OZ/NYSTATIN 15 GRAM MIXTURE PASTE TOP SCH ×2 (09:21→20:52)
[2021-04-08] MEDS ORDERED: ONDANSETRON 4 MG/2 ML VIAL IV PRN (12:13)
[2021-04-08] MEDS: ENOXAPARIN 40 MG/0.4 ML SYRINGE SUBCUT SCH (15:21)
[2021-04-08] MEDS: BENZONATATE 100 MG CAPSULE PO PRN (20:52)
[2021-04-09 05:26] LABS: Albumin 3.1 G/DL (3.4-5.0); Bilirubin,Total 0.4 MG/DL (0.20-1.00); Calcium 8.1 MG/DL (8.5-10.1); Osmolality,Calculated 270.5 MOS/KG (273-304); Potassium 4.9 MMOL/L (3.5-5.1); Total Protein 6.6 G/DL (6.4-8.2)
[2021-04-09] MEDS: LEVOTHYROXINE 125 MCG TABLET PO SCH (06:00)
[2021-04-09] MEDS: INSULIN LISPRO 100 UNIT/ML SUBCUT SCH ×4 (07:52→21:47)
[2021-04-09] MEDS ORDERED: BUMETANIDE 1 MG/4 ML VIAL IV SCH (09:00)
[2021-04-09] MEDS: DOCUSATE SODIUM 100 MG CAPSULE PO SCH ×2 (09:45→21:47)
[2021-04-09] MEDS: CARBOXYMETHYLCELLULOSE 1% OPH SOLN BOTH EYES SCH (09:45)
[2021-04-09] MEDS: CETIRIZINE 10 MG TABLET PO SCH (09:45)
[2021-04-09] MEDS: MULTIVITAMIN (CENTRUM) TABLET PO SCH (09:45)
[2021-04-09] MEDS: CALCIUM (CARBONATE)/VITAMIN D 600 MG-400 UNIT TABLET PO SCH (09:45)
[2021-04-09] MEDS: DESITIN 4OZ/NYSTATIN 15 GRAM MIXTURE PASTE TOP SCH ×2 (09:45→21:48)
[2021-04-09] MEDS: LACTULOSE 20 GM/30 ML UDCUP PO SCH (09:45)
[2021-04-09] MEDS: NYSTATIN CREAM 15 GM TUBE TOP SCH ×2 (09:46→21:48)
[2021-04-09] MEDS: FLUTICASONE 50 MCG NASAL SPRAY 16 GM BOTTLE BOTH NARES SCH (09:46)
[2021-04-09] MEDS: ENOXAPARIN 40 MG/0.4 ML SYRINGE SUBCUT SCH (14:12)
[2021-04-09] MEDS: SODIUM CHLORIDE 0.65% NASAL SPRAY 45 ML BOTTLE BOTH NARES PRN (14:13)
[2021-04-09] MEDS: DICLOFENAC 1% GEL 100 GM TUBE TOP SCH ×2 (15:43→21:50)
[2021-04-09] MEDS: BUMETANIDE 1 MG/4 ML VIAL IV SCH (17:12)
[2021-04-09 17:56] LABS: Protein/Creatinine Ratio,Urine 0.3 RATIO
[2021-04-10 06:37] LABS: Albumin 2.9 G/DL (3.4-5.0); Bilirubin,Total 0.6 MG/DL (0.20-1.00); Calcium 8.1 MG/DL (8.5-10.1); Osmolality,Calculated 270.5 MOS/KG (273-304); Potassium 4.8 MMOL/L (3.5-5.1); Total Protein 6.4 G/DL (6.4-8.2)
[2021-04-10] MEDS: LEVOTHYROXINE 125 MCG TABLET PO SCH (07:14)
[2021-04-10] MEDS: CETIRIZINE 10 MG TABLET PO SCH (09:48)
[2021-04-10] MEDS: LACTULOSE 20 GM/30 ML UDCUP PO SCH (09:48)
[2021-04-10] MEDS: DOCUSATE SODIUM 100 MG CAPSULE PO SCH ×2 (09:48→21:13)
[2021-04-10] MEDS: MULTIVITAMIN (CENTRUM) TABLET PO SCH (09:48)
[2021-04-10] MEDS: CALCIUM (CARBONATE)/VITAMIN D 600 MG-400 UNIT TABLET PO SCH (09:48)
[2021-04-10] MEDS: INSULIN LISPRO 100 UNIT/ML SUBCUT SCH ×4 (09:49→21:13)
[2021-04-10] MEDS: BUMETANIDE 1 MG/4 ML VIAL IV SCH ×2 (09:49→16:25)
[2021-04-10] MEDS: DICLOFENAC 1% GEL 100 GM TUBE TOP SCH ×3 (09:59→21:13)
[2021-04-10] MEDS: NYSTATIN CREAM 15 GM TUBE TOP SCH ×2 (09:59→21:13)
[2021-04-10] MEDS: DESITIN 4OZ/NYSTATIN 15 GRAM MIXTURE PASTE TOP SCH ×2 (09:59→21:13)
[2021-04-10] MEDS: FLUTICASONE 50 MCG NASAL SPRAY 16 GM BOTTLE BOTH NARES SCH (10:00)
[2021-04-10] MEDS: ENOXAPARIN 40 MG/0.4 ML SYRINGE SUBCUT SCH (14:33)
[2021-04-10] MEDS: CARBOXYMETHYLCELLULOSE 1% OPH SOLN BOTH EYES SCH (14:33)
[2021-04-11 04:59] LABS: Calcium 8.6 MG/DL (8.5-10.1); Osmolality,Calculated 269.5 MOS/KG (273-304); Potassium 4.8 MMOL/L (3.5-5.1)
[2021-04-11] MEDS: LEVOTHYROXINE 125 MCG TABLET PO SCH (06:21)
[2021-04-11] MEDS: BUMETANIDE 1 MG/4 ML VIAL IV SCH ×4 (09:08→17:21)
[2021-04-11] MEDS: DOCUSATE SODIUM 100 MG CAPSULE PO SCH ×2 (09:08→20:17)
[2021-04-11] MEDS: CALCIUM (CARBONATE)/VITAMIN D 600 MG-400 UNIT TABLET PO SCH (09:08)
[2021-04-11] MEDS: CETIRIZINE 10 MG TABLET PO SCH (09:09)
[2021-04-11] MEDS: DICLOFENAC 1% GEL 100 GM TUBE TOP SCH ×3 (09:09→20:17)
[2021-04-11] MEDS: FLUTICASONE 50 MCG NASAL SPRAY 16 GM BOTTLE BOTH NARES SCH (09:09)
[2021-04-11] MEDS: NYSTATIN CREAM 15 GM TUBE TOP SCH ×2 (09:10→20:17)
[2021-04-11] MEDS: DESITIN 4OZ/NYSTATIN 15 GRAM MIXTURE PASTE TOP SCH ×2 (09:10→20:17)
[2021-04-11] MEDS: MULTIVITAMIN (CENTRUM) TABLET PO SCH (09:15)
[2021-04-11] MEDS: LACTULOSE 20 GM/30 ML UDCUP PO SCH (09:16)
[2021-04-11] MEDS: INSULIN LISPRO 100 UNIT/ML SUBCUT SCH ×4 (09:19→20:17)
[2021-04-11] MEDS: CARBOXYMETHYLCELLULOSE 1% OPH SOLN BOTH EYES SCH (10:55)
[2021-04-11] MEDS: ENOXAPARIN 40 MG/0.4 ML SYRINGE SUBCUT SCH (13:41)
[2021-04-11] MEDS: PHENYTOIN ER 100 MG CAPSULE PO SCH (20:17)
[2021-04-12] MEDS: LEVOTHYROXINE 125 MCG TABLET PO SCH (05:56)
[2021-04-12 06:14] LABS: Calcium 8.5 MG/DL (8.5-10.1); Osmolality,Calculated 276.1 MOS/KG (273-304); Potassium 4.9 MMOL/L (3.5-5.1)
[2021-04-12] MEDS: INSULIN LISPRO 100 UNIT/ML SUBCUT SCH ×4 (09:37→20:49)
[2021-04-12] MEDS: CETIRIZINE 10 MG TABLET PO SCH (09:38)
[2021-04-12] MEDS: PHENYTOIN ER 100 MG CAPSULE PO SCH ×3 (09:38→20:48)
[2021-04-12] MEDS: CALCIUM (CARBONATE)/VITAMIN D 600 MG-400 UNIT TABLET PO SCH (09:38)
[2021-04-12] MEDS: LACTULOSE 20 GM/30 ML UDCUP PO SCH (09:38)
[2021-04-12] MEDS: MULTIVITAMIN (CENTRUM) TABLET PO SCH (09:38)
[2021-04-12] MEDS: DOCUSATE SODIUM 100 MG CAPSULE PO SCH ×2 (09:38→20:48)
[2021-04-12] MEDS: BUMETANIDE 1 MG/4 ML VIAL IV SCH ×2 (09:38→16:54)
[2021-04-12] MEDS: FLUTICASONE 50 MCG NASAL SPRAY 16 GM BOTTLE BOTH NARES SCH (09:39)
[2021-04-12] MEDS: NYSTATIN CREAM 15 GM TUBE TOP SCH ×2 (09:43→20:50)
[2021-04-12] MEDS: DESITIN 4OZ/NYSTATIN 15 GRAM MIXTURE PASTE TOP SCH ×2 (09:43→20:50)
[2021-04-12] MEDS: DICLOFENAC 1% GEL 100 GM TUBE TOP SCH ×3 (09:43→20:49)
[2021-04-12] MEDS: CARBOXYMETHYLCELLULOSE 1% OPH SOLN BOTH EYES SCH (09:44)
[2021-04-12] MEDS: ENOXAPARIN 40 MG/0.4 ML SYRINGE SUBCUT SCH (16:55)
[2021-04-13] MEDS: LEVOTHYROXINE 125 MCG TABLET PO SCH (06:14)
[2021-04-13 08:03] LABS: Basophils % 0.8 % (0.0-0.8); Eosinophils # 0.2 10*3/uL (0.0-0.87); Eosinophils % 4.9 % (0.00-10.9); Hematocrit 28.8 VOL% (35.7-47.0); Hemoglobin 9.7 GM/DL (12.0-16.0); Immature Granulocytes % 1.4 %; Immature Granulocytes Absolute 0.07 #; Lymphocytes # 1.1 10*3/uL (1.4-4.0); Mean Corpuscular HGB Conc 33.7 GM/DL (32-36); Mean Corpuscular Volume 95.7 FL (87-102); Mean Platelet Volume 8.8 FL (9.6-12.0); Monocytes % 10.1 % (1.7-12.7); Neutrophils % 60.8 % (38.7-73.9); Platelet Count 202 T/CUMM (130-400); Red Blood Count 3.01 MC/CUMM (3.8-5.5); Red Cell Distribution Width 14.6 % (9.3-17.3); White Blood Count 4.9 T/CUMM (4-12)
[2021-04-13 08:18] LABS: Calcium 8.3 MG/DL (8.5-10.1); Osmolality,Calculated 282.4 MOS/KG (273-304); Potassium 4.6 MMOL/L (3.5-5.1)
[2021-04-13] MEDS: INSULIN LISPRO 100 UNIT/ML SUBCUT SCH ×4 (09:48→22:02)
[2021-04-13] MEDS: BUMETANIDE 1 MG/4 ML VIAL IV SCH ×2 (09:49→15:31)
[2021-04-13] MEDS: MULTIVITAMIN (CENTRUM) TABLET PO SCH (09:55)
[2021-04-13] MEDS: CALCIUM (CARBONATE)/VITAMIN D 600 MG-400 UNIT TABLET PO SCH (09:55)
[2021-04-13] MEDS: PHENYTOIN ER 100 MG CAPSULE PO SCH ×3 (09:55→22:02)
[2021-04-13] MEDS: LACTULOSE 20 GM/30 ML UDCUP PO SCH (09:55)
[2021-04-13] MEDS: DOCUSATE SODIUM 100 MG CAPSULE PO SCH ×2 (09:55→22:02)
[2021-04-13] MEDS: CETIRIZINE 10 MG TABLET PO SCH (09:55)
[2021-04-13] MEDS: DICLOFENAC 1% GEL 100 GM TUBE TOP SCH ×3 (09:56→22:03)
[2021-04-13] MEDS: NYSTATIN CREAM 15 GM TUBE TOP SCH ×2 (09:56→22:03)
[2021-04-13] MEDS: SODIUM CHLORIDE 0.65% NASAL SPRAY 45 ML BOTTLE BOTH NARES PRN (09:56)
[2021-04-13] MEDS: FLUTICASONE 50 MCG NASAL SPRAY 16 GM BOTTLE BOTH NARES SCH (09:56)
[2021-04-13] MEDS: DESITIN 4OZ/NYSTATIN 15 GRAM MIXTURE PASTE TOP SCH ×2 (09:57→22:03)
[2021-04-13] MEDS: CARBOXYMETHYLCELLULOSE 1% OPH SOLN BOTH EYES SCH (09:58)
[2021-04-13] MEDS: ENOXAPARIN 40 MG/0.4 ML SYRINGE SUBCUT SCH (15:31)
[2021-04-14] MEDS: LEVOTHYROXINE 125 MCG TABLET PO SCH (06:04)
[2021-04-14 08:12] LABS: Basophils # 0.1 10*3/uL (0.0-0.2); Eosinophils # 0.3 10*3/uL (0.0-0.87); Eosinophils % 5.3 % (0.00-10.9); Hematocrit 29.9 VOL% (35.7-47.0); Lymphocytes # 1.3 10*3/uL (1.4-4.0); Lymphocytes % 26.5 % (21.3-54.2); Mean Corpuscular HGB Conc 33.4 GM/DL (32-36); Mean Corpuscular Volume 96.5 FL (87-102); Mean Platelet Volume 8.8 FL (9.6-12.0); Neutrophils % 55.2 % (38.7-73.9); Platelet Count 229 T/CUMM (130-400); Red Cell Distribution Width 14.9 % (9.3-17.3); White Blood Count 4.9 T/CUMM (4-12)
[2021-04-14 08:34] LABS: Calcium 8.6 MG/DL (8.5-10.1); Osmolality,Calculated 278.4 MOS/KG (273-304); Potassium 4.8 MMOL/L (3.5-5.1)
[2021-04-14] MEDS: BUMETANIDE 1 MG/4 ML VIAL IV SCH ×2 (09:24→15:46)
[2021-04-14] MEDS: INSULIN LISPRO 100 UNIT/ML SUBCUT SCH ×3 (09:24→15:46)
[2021-04-14] MEDS: CETIRIZINE 10 MG TABLET PO SCH (09:28)
[2021-04-14] MEDS: LACTULOSE 20 GM/30 ML UDCUP PO SCH (09:28)
[2021-04-14] MEDS: PHENYTOIN ER 100 MG CAPSULE PO SCH ×2 (09:28→15:15)
[2021-04-14] MEDS: DESITIN 4OZ/NYSTATIN 15 GRAM MIXTURE PASTE TOP SCH (09:29)
[2021-04-14] MEDS: MULTIVITAMIN (CENTRUM) TABLET PO SCH (09:29)
[2021-04-14] MEDS: DOCUSATE SODIUM 100 MG CAPSULE PO SCH (09:29)
[2021-04-14] MEDS: CALCIUM (CARBONATE)/VITAMIN D 600 MG-400 UNIT TABLET PO SCH (09:29)
[2021-04-14] MEDS: FLUTICASONE 50 MCG NASAL SPRAY 16 GM BOTTLE BOTH NARES SCH (09:29)
[2021-04-14] MEDS: NYSTATIN CREAM 15 GM TUBE TOP SCH (09:30)
[2021-04-14] MEDS: DICLOFENAC 1% GEL 100 GM TUBE TOP SCH ×2 (09:30→15:13)
[2021-04-14] MEDS: CARBOXYMETHYLCELLULOSE 1% OPH SOLN BOTH EYES SCH (09:32)
[2021-04-14 13:51] VITALS: BP 131/41
[2021-04-14] MEDS: ENOXAPARIN 40 MG/0.4 ML SYRINGE SUBCUT SCH (15:15)
== END 2021-04-14 16:20 | DRG 91 ==
LOC: N.EDINP 12:32 → N.ED 12:32 → SUATTDRO 19:17 → N.EDINP 20:15 → N.4E 21:51 → SUATTDRO 04-06 08:00
PROVIDERS: ADMIT Phlebology; ATTEND Internal Medicine